=== PATIENT | male | born 1960 | race Caucasian/White ===

== ENCOUNTER 2017-03-20 18:01 | Emergency (ER) | payer BC, SELFPAY ==
[2017-03-20 19:27] VITALS: BP 127/82; PULSE 118; RESP 20; TEMP 37.2; O2SAT 96; BMI 30.4
--- NOTE | 2017-03-20 19:35 | HMH.EDUTC ---
[facility] [place] Clinical Impression: Influenza Disposition: Home, Self-Care Condition on Discharge: Good Instructions: Influenza, DI for Muscle Spasm Additional Instructions: Take medication as prescribed *Ibuprofen hema 6 hours with meal as needed for pain/inflammation *Alternate ibuprofen.and Tylenol as needed if you need for pain and fever *Ice 20 minutes every 2 hours for the first 48 hours after the initial injury followed by moist heat every 20 minutes 3-4 times a day to affected area *Muscle relaxer every 8 hours as needed for muscle spasms but remember, it WILL cause drowsiness You cannot take it and drive, operate machinery or care for small children. *Keep this area active, no movement leads to more stiffness, However take it easy and avoid heavy lifting pushing or pulling ? Start Tamiflu today if you are going to take it. Discussed risk and possible benefits. ? Lots of rest ? Increase Fluids water, Gatorade, powerade, pedialyte,if infant/toddler/child ? Alternate Tylenol and / or ibuprofen as discussed for fever, aches, chills x 24 hours without medication for symptoms ? Follow up IMMEDIATELY for new or worsening Symptoms OR no noticeable improvement over the next 48-72 hours, 911 for difficulty or breathing ? You or your child area contagious until no fever, aches, chills for 24 hours with medication for symptoms Prescriptions: Cyclobenzaprine HCl [Flexeril 10mg tablet] 10 mg PO TID #20 tablet Oseltamivir Phosphate [Tamiflu 75mg Capsule] 75 mg PO BID #10 capsule Promethazine/Dextromethorphan [Promethazine-Dm Syrup] 5 ml PO Q4H #200 syrup Referrals: Khang Gustafson MD [Primary Care Provider] - Time of Disposition: 20:02 Medical Decision Making Vital Signs: 03/20/17 19:27 Temperature 98.9 F Temperature Source Temporal Artery Scan Pulse Rate [Right Radial] 118 H Respiratory Rate 20 Blood Pressure [Right Arm] 127/82 Blood Pressure Mean [Right Arm] 97 Blood Pressure Source [Right Arm] Automatic Cuff Blood Pressure Position [Right Arm] Sitting 02 Sat by Pulse Oximetry 96 Oxygen Delivery Method Room Air - Lucio Inquiry Pt receiving controlled substance: No Lucio was queried for this patient: No [facility] [place] H[place] - General Stated complaint: ear pain/ cough Mode of Arrival: Ambulatory Source of Information: Patient Limitations: No Limitations Description of Symptoms (Recalled from Triage Doc. by RN): COUGH, FEVER, CHEST CONGESTION, KNOT ON LEFT BACK HEENT Symptoms (Recalled from RN notes): No Resp Symptoms (Recalled from RN notes): Yes (COUGH, CHEST CONGESTION) Skin Symptoms (Recalled from RN notes): No MS Symptoms (Recalled from RN notes): No Functional Status (Recalled from RN notes): NA - History of Present Illness Provider Complaint: Patient state he is having ear fullness, cough and body aches since yesterday that has continued to get worse States that he has coughed so much that he is having spasms in his back Severity: mild Severity scale (1-10): 3 Relieving factors: none Exacerbating factors: none Treatments prior to arrival: none - Related Data Previous Rx's Medication Instructions Recorded Cyclobenzaprine HCl [Flexeril 10mg 10 mg PO TID #20 tablet 03/20/17 tablet] Oseltamivir Phosphate [Tamiflu 75 mg PO BID #10 capsule 03/20/17 75mg Capsule] Promethazine/Dextromethorphan 5 ml PO Q4H #200 syrup 03/20/17 [Promethazine-Dm Syrup] Allergies Allergy/AdvReac Type Severity Reaction Status Date / Time No Known Allergies Allergy Unknown Uncoded 03/06/17 14:24 - Worker's Comp Is this a Worker's Comp case?: No Is this an H Worker's Comp?: No Is this a [place] Worker's Comp?: No [facility] History Medical History: Denies:: Cancer, Diabetes Mellitus Type 1, Diabetes Mellitus Type 2, MRSA Amputation: No Fractures: No - *Social History Smoking Status: Never smoker Alcohol Intake: never - Psychiatric History Expresses thoughts of harming self/others: None S
--- NOTE | 2017-03-20 19:41 | ED_ITS ---
[facility] [place] Clinical Impression: Influenza Disposition: Home, Self-Care Condition on Discharge: Good Instructions: Influenza, DI for Muscle Spasm Additional Instructions: Take medication as prescribed *Ibuprofen hema 6 hours with meal as needed for pain/inflammation *Alternate ibuprofen.and Tylenol as needed if you need for pain and fever *Ice 20 minutes every 2 hours for the first 48 hours after the initial injury followed by moist heat every 20 minutes 3-4 times a day to affected area *Muscle relaxer every 8 hours as needed for muscle spasms but remember, it WILL cause drowsiness You cannot take it and drive, operate machinery or care for small children. *Keep this area active, no movement leads to more stiffness, However take it easy and avoid heavy lifting pushing or pulling ? Start Tamiflu today if you are going to take it. Discussed risk and possible benefits. ? Lots of rest ? Increase Fluids water, Gatorade, powerade, pedialyte,if infant/toddler/child ? Alternate Tylenol and / or ibuprofen as discussed for fever, aches, chills x 24 hours without medication for symptoms ? Follow up IMMEDIATELY for new or worsening Symptoms OR no noticeable improvement over the next 48-72 hours, 911 for difficulty or breathing ? You or your child area contagious until no fever, aches, chills for 24 hours with medication for symptoms Prescriptions: Cyclobenzaprine HCl [Flexeril 10mg tablet] 10 mg PO TID #20 tablet Oseltamivir Phosphate [Tamiflu 75mg Capsule] 75 mg PO BID #10 capsule Promethazine/Dextromethorphan [Promethazine-Dm Syrup] 5 ml PO Q4H #200 syrup Referrals: Khang Gustafson MD [Primary Care Provider] - Time of Disposition: 20:02 Medical Decision Making Vital Signs: 03/20/17 19:27 Temperature 98.9 F Temperature Source Temporal Artery Scan Pulse Rate [Right Radial] 118 H Respiratory Rate 20 Blood Pressure [Right Arm] 127/82 Blood Pressure Mean [Right Arm] 97 Blood Pressure Source [Right Arm] Automatic Cuff Blood Pressure Position [Right Arm] Sitting 02 Sat by Pulse Oximetry 96 Oxygen Delivery Method Room Air - Lucio Inquiry Pt receiving controlled substance: No Lucio was queried for this patient: No [facility] [place] - General Stated complaint: ear pain/ cough Mode of Arrival: Ambulatory Source of Information: Patient Limitations: No Limitations Description of Symptoms (Recalled from Triage Doc. by RN): COUGH, FEVER, CHEST CONGESTION, KNOT ON LEFT BACK HEENT Symptoms (Recalled from RN notes): No Resp Symptoms (Recalled from RN notes): Yes (COUGH, CHEST CONGESTION) Skin Symptoms (Recalled from RN notes): No MS Symptoms (Recalled from RN notes): No Functional Status (Recalled from RN notes): NA - History of Present Illness Provider Complaint: Patient state he is having ear fullness, cough and body aches since yesterday that has continued to get worse States that he has coughed so much that he is having spasms in his back Severity: mild Severity scale (1-10): 3 Relieving factors: none Exacerbating factors: none Treatments prior to arrival: none - Related Data Previous Rx's Medication Instructions Recorded Cyclobenzaprine HCl [Flexeril 10mg 10 mg PO TID #20 tablet 03/20/17 tablet] Oseltamivir Phosphate [Tamiflu 75 mg PO BID #10 capsule 03/20/17 75mg Capsule] Promethazine/Dextromethorphan 5 ml PO Q4H #200 syrup 03/20/17 [Promethazine-Dm Syrup]
[2017-03-20 20:07] LABS: UTC Influenza A Antigen Negative (Negative); UTC Influenza B Antigen Positive (Negative)
== END 2017-03-20 20:13 | disposition home or self-care (01) ==
PROVIDERS: Emergency Provider Nurse Practitioner; Family Provider Family Medicine; PCP Family Medicine
DX: J11.1 Influenza due to unidentified influenza virus with other respiratory manifestations (principal)
CPT/HCPCS: 87276; 87804; 99201

== ENCOUNTER → 2017-04-26 17:35 | Outpatient (CLI) | payer BC, SELFPAY ==
--- NOTE | 2017-04-26 18:21 | XR_ITS ---
XR chest 2V HISTORY: ITS.REASON: COUGH ORDERING PHYSICIAN: Khang Gustafson MD PATIENT AGE: 56 years COMPARISON: None available FINDINGS: The cardiomediastinal silhouette and pulmonary vascularity are within normal limits. Patchy density left lung base consistent with atelectasis and/or infiltrate.. No acute bony abnormalities. IMPRESSION: Atelectasis or infiltrate left lung base
== END ==
PROVIDERS: PCP Family Medicine; Visit Provider Family Medicine
DX: R05 Cough (principal)
CPT/HCPCS: 71046

== ENCOUNTER → 2017-05-14 10:13 | Outpatient (CLI) | payer BC, SELFPAY ==
--- NOTE | 2017-05-14 10:22 | XR_ITS ---
XR chest 2V Ordering Physician: Khang Gustafson MD Patient Age: 56 years: Male HISTORY: ITS.REASON: COUGH Since January nonsmoker TECHNIQUE: PA and lateral chest COMPARISON :Previous chest film 04/26/2017 FINDINGS There is been no significant interval change. Heart, and mediastinal structures appear similar. The lungs with fair expansion. Mild accentuation of markings toward the bases may reflect mild atelectasis overlying chest density. Subtle area density projected over the lower T-spine is similar to previous study most likely reflects summation shadow and/or marginal osteophytes. No other associated findings on plain film. No hilar mass chest wall and T-spine studies are otherwise unremarkable to IMPRESSION: ======= Stable chest with nothing definitely acute Minor comments in text
== END ==
PROVIDERS: PCP Family Medicine; Visit Provider Family Medicine
DX: R05 Cough (principal)
CPT/HCPCS: 71046

== ENCOUNTER → 2017-08-03 13:21 | Outpatient (CLI) | payer BC, SELFPAY | PROVIDERS: Family Provider Family Medicine; PCP Family Medicine; Visit Provider Family Medicine | DX: R05 Cough (principal) | CPT/HCPCS: 94010 ==

== ENCOUNTER → 2019-08-08 08:50 | Outpatient (CLI) | payer BC, SELFPAY ==
--- NOTE | 2019-08-08 09:02 | FL_ITS ---
PROCEDURE: FL UPPER GI W AIR CLINICAL INDICATION: ESOPHAGEAL DYPHAGIA,DYSPEPSIA COMPARISON: No exams were available for comparison FINDINGS: The swallowing function and soft motility are normal. Spot films of the cervical esophagus show no abnormal anterior or posterior indentation of the barium column while swallowing. There is a small to moderate size sliding hiatal hernia noted. There is no significant GE reflux demonstrated during the study. An overhead drinking film showed no abnormality of the thoracic esophagus. The stomach is well distended with barium and air in shows no abnormality. The duodenal bulb and duodenal sweep and proximal small bowel appear normal. Fluoroscopic time was 2 minutes 26 seconds. IMPRESSION: Small to moderate size sliding hiatal hernia without GE reflux demonstrated during the study Dictated by: Dr. Alhaji Martines MD 08/08/2019 10:[address] Alhaji Martines MD in [place] 08/08/2019 10:13
== END ==
PROVIDERS: PCP Family Medicine; Visit Provider Family Medicine
DX: R13.10 Dysphagia, unspecified (principal); R10.13 Epigastric pain; Z13.6 Encounter for screening for cardiovascular disorders
CPT/HCPCS: 74246

== ENCOUNTER → 2019-08-26 08:22 | Outpatient (CLI) | payer SELFPAY ==
--- NOTE | 2019-08-26 08:31 | CT_ITS ---
PROCEDURE: CT HEART W CALCIUM SCORE CLINICAL HISTORY: SCREENING COMPARISON: No exams were available for comparison TECHNIQUE: Axial images obtained with sagittal and coronal reformats. All CT scans at the facility use one or more dose reduction, viz: automated exposure control, ma/kV adjustment per patient size (including targeted exams where dose is matched to indication, i.e. head), or iterative reconstruction technique. FINDINGS: Coronary artery calcium score is 230 indicating moderate calcific plaque burden with cardiovascular disease risk. Incidental findings she show mild atelectatic or fibrotic changes in the left lung base. IMPRESSION: Moderate plaque burden with high cardiovascular disease risk Dictated by: Mo Connor MD 08/26/2019 17:29 Electronically signed by Mo Connor MD in [place] 08/26/2019 17:29
== END ==
PROVIDERS: PCP Family Medicine; Visit Provider Family Medicine
DX: Z13.6 Encounter for screening for cardiovascular disorders (principal)
CPT/HCPCS: 75571

== ENCOUNTER → 2019-12-02 08:34 | Outpatient (CLI) | payer BC, SELFPAY ==
--- NOTE | 2019-12-02 | CA_ITS ---
APPROVED REPORT Exam: Exercise Treadmill Technologist: Altagracia Degroot, Ht: 6 ft 1 in Wt: 220 lbs BSA: 2.24 m2 HR: 74 bpm BP: 129/83 mmHg Indications: Atypical Chest Pain, HTN Medical History Medications: Valsartan,,,,, LoraTidine,,,,, RoSUVASTATIN,,,,, SilDENAFIL,,,,, Stress Test Details Test: Juan HR Resting HR: 74 bpm Max Heart Rate (APMHR): 162 bpm Max HR Achieved: 160 bpm Target HR (85% APMHR): 137 bpm % of APMHR: 98 Recovery HR: 100 bpm BP Resting BP: 132/89 mmHg Max BP: 168/86 mmHg Recovery BP: 133.0/83.0 mmHg ECG Clinical Exercise duration: 08:22 min Highest Stage Achieved: Exercise capacity: 10.1 METs Stress ECG Conclusion Resting EKG: Normal Sinus Rhythm, NS ST abn in lead III and aVF Exercised 8:22 on Juan Protocol Max HR: 160, % of PM: 99%, Max BP: 168/86, METs: 10.1, Test Stopped due to: SOA, Fatigue Symptom: No CP Arrhythmias/Ectopy: Occasional PVC ST-T changes: 0.5-1mm of horizontal and downsloping ST depression in leads III and aVF. Exaggeration of baseline abns. Conclusion: Probably normal GXT, GXT only (no images) Test Summary REST . . . . . . . Sitting REST . . . . . . . Standing REST 04:25 0.0 0.0 74 . 132/ 89 . . Stage 1 01:00 10.0 1.7 106 . . . . Stage 1 02:00 10.0 1.7 120 . . . . Stage 1 03:00 10.0 1.7 123 . 166/ 88 . . Stage 2 01:00 12.0 2.5 127 . . . . Stage 2 02:00 12.0 2.5 136 . . . . Stage 2 03:00 12.0 2.5 138 . 168/ 86 . . Stage 3 01:00 14.0 3.4 149 . . . . Stage 3 02:00 14.0 3.4 158 . . . . Stage 3 02:22 14.0 3.4 160 . . . Stop exercise at 08:22 RECOVERY 01:00 0.0 0.0 131 . . . . RECOVERY 02:00 0.0 0.0 115 . 140/ 80 . . RECOVERY 03:00 0.0 0.0 108 . 145/ 75 . . RECOVERY 04:00 0.0 0.0 105 . 134/ 81 . . RECOVERY 05:00 0.0 0.0 101 . 133/ 83 . . RECOVERY 05:19 0.0 0.0 102 . 133/ 83 . . Electronically signed by : Rogers Barlow, 12/03/2019 09:56:23
== END ==
PROVIDERS: PCP Family Medicine; Visit Provider Family Medicine
DX: R07.89 Other chest pain (principal); I10 Essential (primary) hypertension; E78.00 Pure hypercholesterolemia, unspecified; R93.1 Abnormal findings on diagnostic imaging of heart and coronary circulation
CPT/HCPCS: 93017

== ENCOUNTER → 2020-01-27 08:35 | Outpatient (CLI) | payer BC, SELFPAY | PROVIDERS: PCP Family Medicine; Visit Provider Family Medicine | DX: G47.33 Obstructive sleep apnea (adult) (pediatric) (principal); R06.83 Snoring; R53.83 Other fatigue | CPT/HCPCS: G0399 ==

== ENCOUNTER → 2021-01-08 09:07 | Outpatient (CLI) | payer BC, SELFPAY | LOC: COUGHCL 09:08 → COVID.OUT 09:10 | PROVIDERS: PCP Family Medicine; Visit Provider Family Medicine | DX: Z11.52 Encounter for screening for COVID-19 (principal) | CPT/HCPCS: C9803; U0003; U0005 ==

== ENCOUNTER → 2021-04-08 16:33 | Outpatient (CLI) | payer BC, SELFPAY | PROVIDERS: Visit Provider Nurse Practitioner | DX: U07.1 COVID-19 (principal) | CPT/HCPCS: C9803; U0003; U0005 ==

== ENCOUNTER 2022-05-14 21:42 | Emergency (ER) | payer BC, SELFPAY ==
[2022-05-14 21:43] VITALS: BP 144/80; PULSE 99; RESP 16; TEMP 36.7; O2SAT 97; BMI 30.3
[2022-05-14 21:51] VITALS: BMI 32.0
--- NOTE | 2022-05-14 21:52 | CT_ITS ---
PROCEDURE INFORMATION: Exam: CT Abdomen And Pelvis Without Contrast Exam date and time: 05/14/2022 10:09 PM Age: 61 years old Clinical indication: Abdominal pain; Flank; Right; Additional info: Flank pain right side TECHNIQUE: Imaging protocol: Computed tomography of the abdomen and pelvis without contrast. Radiation optimization: All CT scans at this facility use at least one of these dose optimization techniques: automated exposure control; mA and/or kV adjustment per patient size (includes targeted exams where dose is matched to clinical indication); or iterative reconstruction. REPORTING DATA: Count of CT and Cardiac NM exams in prior 12 months: This patient has received 0 known CTs and 0 known cardiac nuclear medicine studies in the 12 months prior to the current study. COMPARISON: CT HEART W CALCIUM SCORE 08/26/2019 9:16 AM FINDINGS: Lungs: Mild atelectasis in the lung bases. Heart: Heart size normal. Mediastinal space: The visualized distal esophagus is largely contracted without gross abnormality. Liver: Moderate fatty infiltration of the liver. Mild fatty sparing around the gallbladder fossa . Normal contour. No mass lesions. No intrahepatic biliary ductal dilatation. Gallbladder and bile ducts: Mildly heterogeneous content in the gallbladder suspicious for small noncalcified stones or sludge. No changes of cholecystitis. Nondilated bile ducts. Pancreas: Normal. No inflammatory changes or ductal dilation. Spleen: Granulomatous calcification in the spleen with no acute splenic abnormality. Adrenal glands: Normal. No adrenal mass. Kidneys and ureters: Mild right hydronephrosis with a proximal right ureteral stone just distal to the UVJ measuring 7 x 5 x 4 mm. Moderate right perinephric stranding. 7 mm nonobstructive right renal stone. 4 mm nonobstructive left renal stone. Stomach and bowel: The stomach is largely contracted. The small bowel is nondilated with no gross abnormality. No acute colonic abnormalities. There are few diverticula present in the distal colon without evidence of acute diverticulitis. Appendix: Prior appendectomy. Intraperitoneal space: No free fluid or air. Vasculature: No acute process. No abdominal aortic aneurysm. Mild calcific atherosclerosis. Lymph nodes: No adenopathy. Urinary bladder: The urinary bladder is largely contracted. Fluid content is complex measuring 25-30 Hounsfield units, suggesting probable hematuria, correlate with UA. Reproductive: Moderately enlarged prostate. Small right hydrocele marginally visualized. Bones/joints: No acute osseous abnormalities. Prior L3-L4 laminectomy and fusion without gross hardware complication. Soft tissues: Unremarkable. IMPRESSION: 1. There is a 7 x 5 x 4 mm proximal right ureteral stone with mild right hydronephrosis. 2. Additional bilateral nonobstructive renal stones are present. 3. Moderate fatty infiltration of the liver. 4. Suspect gallbladder sludge or noncalcified stones with no evidence of cholecystitis or biliary obstruction. 5. Mildly hyperdense content in the urinary bladder suggests probable hematuria in the setting of a passing right renal stone, correlate with UA. 6. Additional nonemergent findings detailed above.
[2022-05-14 22:00] VITALS: BP 144/80; PULSE 91; O2SAT 99
--- NOTE | 2022-05-14 22:06 | PC.NURSE ---
Pt gone to RAD via stretcher
[2022-05-14 22:07] LABS: Basophils # 0.1 K/mm3 (0-0.2); Basophils % 0.7 % (0.1-2.0); Eosinophils # 0.2 K/mm3 (0.0-0.4); Eosinophils % 1.7 % (0.1-12.0); Hematocrit 41.9 % (42.0-52.0); Hemoglobin 14.5 g/dL (14.1-18.0); Lymphocytes # 2.1 K/mm3 (0.7-4.5); Lymphocytes % 20.3 % (10-50); Mean Corpuscular HGB Conc 34.7 g/dL (31.8-35.4); Mean Corpuscular Hemoglobin 32.9 pg (27.0-31.2); Mean Corpuscular Volume 94.9 fl (80-94); Mean Platelet Volume 8.3 fl (7.4-10.4); Monocytes # 0.5 K/mm3 (0.1-1.0); Monocytes % 4.6 % (1.7-9.3); Neutrophils # 7.4 K/mm3 (1.8-7.8); Neutrophils % 72.7 % (37.0-80.0); Platelet Count 280 K/mm3 (142-424); Red Blood Count 4.42 M/mm3 (4.60-6.20); Red Cell Distribution Width 13.3 % (11.5-17.5); White Blood Count 10.1 K/mm3 (4.8-10.8)
[2022-05-14 22:10] LABS: Alanine Aminotransferase 33 U/L (12-78); Albumin Level 4.5 g/dl (3.5-5.0); Albumin/Globulin Ratio 1.5 (1.1-1.8); Alkaline Phosphatase 61 U/L (38-126); Anion Gap 8.1 mEq/L (5-15); Aspartate Amino Transferase 32 U/L (17-59); Bilirubin,Total 0.4 mg/dl (0.2-1.3); Blood Urea Nitrogen 17 mg/dl (9-20); Calcium 9.3 mg/dl (8.4-10.2); Carbon Dioxide 24 mmol/L (22.0-30.0); Chloride 109 mmol/L (98-107); Creatinine Clearance Estimated 74 mL/min (50-200); Estimated Glomerular Filt Rate 44 ml/min (>60); GFR (African American) 54 ML/MIN (>60); Glucose 136 mg/dl (74-100); Potassium 4.1 mmoL/L (3.5-5.1); Sodium 137 mmol/L (136-145); Total Protein,Serum 7.5 g/dl (6.3-8.2)
--- NOTE | 2022-05-14 22:16 | HMH.EDABDPAI ---
Discharge Plan Disposition Patient Disposition: Home, Self-Care Prescriptions Prescriptions: New tamsulosin [Flomax] 0.4 mg capsule 0.4 mg PO DAILY Qty: 10 0RF No Action omeprazole 20 mg capsule,delayed release(DR/EC) 20 mg PO DAILY multivitamin [One Daily Multivitamin] Tablet 1 tab PO DAILY rosuvastatin [Crestor] 20 mg tablet 20 mg PO DAILY valsartan 320 MG tablet 320 mg PO DAILY cyanocobalamin (vitamin B-12) 1,000 mcg tablet 1,000 mcg PO DAILY finasteride 5 mg tablet 5 mg PO DAILY tadalafil 5 mg tablet 5 mg PO DAILY Referrals Follow up/Referrals: Khang Gustafson MD [Primary Care Provider] - See instructions Clinical Impressions Clinical Impression: Renal colic on right side Instructions Patient Instructions: DI for Kidney Stones Discharge ED Provider: Padma (ED),Russ Keyes Abdominal Pain HPI General Chief Complaint: Abdominal Pain Stated Complaint: possible Michela michaud Time Seen by Provider: 05/14/22 22:16 Mode of Arrival: Ambulatory Source of Information: Patient, Spouse and Medical Record Limitations: No Limitations Description of Symptoms (Recalled from ER Triage Doc. by RN): pt to ED wth right flank pain and nausea and vomiting x 2 hours. History of Present Illness HPI narrative: acute onset of rt flank pain w/o fever/trauma or rash complaint: flank pain Consistency: colicky Location: R flank Severity: severe Associated symptoms: nausea and vomiting Related Data Home Medications Medication Instructions Recorded Confirmed rosuvastatin 20 mg tablet (Crestor) 20 mg PO DAILY Cholesterol 01/15/19 05/14/22 valsartan 320 mg tablet 320 mg PO DAILY High blood pressure 01/30/19 05/14/22 multivitamin (One Daily 1 tab PO DAILY Supplement 02/04/20 05/14/22 Multivitamin tablet) omeprazole 20 mg capsule,delayed 20 mg PO DAILY GERD 02/04/20 05/14/22 release cyanocobalamin (vitamin B-12) 1,000 mcg PO DAILY Supplement 05/14/22 05/14/22 1,000 mcg tablet finasteride 5 mg tablet 5 mg PO DAILY bladder 05/14/22 05/14/22 tadalafil 5 mg tablet 5 mg PO DAILY pulmonary 05/14/22 05/14/22 hypertension Previous Rx's Medication Instructions Recorded tamsulosin 0.4 mg capsule (Flomax) 0.4 mg PO DAILY #10 caps 05/14/22 Allergies Allergy/AdvReac Type Severity Reaction Status Date / Time No Known Allergies Allergy Verified 02/04/20 07:44 [facility] Disclaimer: The information contained in this section may have been updated after the patient was seen, as this information can be updated by other users. Social History Smoking Status: Never smoker second hand exposure: No alcohol intake: current substance use type: denies use current occupational status: employed Travel in the last 8 weeks: None household members: spouse housing: house current occupation: [employer] current occupational exposures/hazards: No caffeine: Yes ROS Obtained: Yes All systems reviewed & no additional complaints except as documented Physical Exam General General appearance: alert Head Head exam: normocephalic Eye Eye exam: Present PERRL and EOMI ENT ENT exam: Present mucous membranes moist Neck Neck exam: Present trachea midline Respiratory Respiratory exam: Absent respiratory distress Cardiovascular Cardiovascular exam: Present regular rate Abdominal Exam Abdominal exam: Present soft Extremities Exam Extremities exam: Present full ROM Neurological Exam Neurological exam: Present alert, oriented X3 and CN II-XII intact; Absent motor sensory deficit Skin Skin exam: Absent rash Medical Decision Making Medical Records Medical records reviewed: Yes I reviewed the patient's medical records. Lucio Inquiry Pt receiving controlled substance: No Vital Signs: 05/14/22 21:43 05/14/22 22:00 05/14/22 22:30 Temperature 98.1 F Temperature Source Oral Pulse Rate 91 H 95 H Pulse Rate [Left Radial] 99 H Resp
--- NOTE | 2022-05-14 22:16 | PC.NURSE ---
URINE SENT TO LAB
[2022-05-14 22:18] LABS: Microscopic, Urine URINE MICROSCOPIC (MICROSCOPIC)
--- NOTE | 2022-05-14 22:20 | PC.NURSE ---
Pt back from RAD
--- NOTE | 2022-05-14 22:28 | PC.NURSE ---
Pt pain level is decreased & nausea is much better. He is resting quietly at this time.
[2022-05-14 22:30] VITALS: BP 155/95; PULSE 95; O2SAT 97
[2022-05-14 22:33] LABS: Appearance,Urine CLEAR (Clear); Bilirubin,Urine Negative (Negative); Blood, Urine 3+ (Negative); Color,Urine DK YELLOW (Yellow); Glucose,Urine (UA) Negative (Negative); Ketones,Urine Negative (Negative); Leukocyte Esterase,Urine Negative (Negative); Nitrate,Urine Negative (Negative); PH,Urine 5.5 (5.0-8.5); Protein,Urine TRACE (Negative); Specific Gravity, Urine >= 1.030 (1.005-1.030); Urobilinogen,Urine 0.2 EU/dl (0.2)
--- NOTE | 2022-05-14 22:40 | PC.NURSE ---
Dr. Rouse at speaking with pt/family
--- NOTE | 2022-05-14 22:44 | PC.NURSE ---
Radiology called to prepare a disc of CT scan for his regular Urologist
[2022-05-14 22:45] LABS: Bacteria,Urine Trace /lpf; RBC,Urine 20-50 #/hpf (0-3); Squamous Epithelial Cell,Urine Occasional #/hpf (0-5); WBC,Urine Occasional #/hpf (0-3)
--- NOTE | 2022-05-14 22:52 | PC.NURSE ---
PT given disc
[2022-05-14 23:00] VITALS: BP 155/95; PULSE 95; RESP 18; TEMP 36.6; O2SAT 99
== END 2022-05-14 23:03 | disposition home or self-care (01) ==
PROVIDERS: Emergency Provider Emergency Medicine; PCP Family Medicine
DX: N23 Unspecified renal colic (principal)
CPT/HCPCS: 74176; 80053; 81001; 85025; 96361; 96374; 96375; 99285; J2405

== ENCOUNTER 2022-06-27 06:32 | Day surgery (SDC) | payer BC, SELFPAY ==
[2022-06-23 10:36] VITALS: BMI 30.9
[2022-06-27] VITALS (8 sets, daily range): BP systolic 87–131; BP diastolic 55–71; PULSE 66–98; RESP 10–18; TEMP 36.3–36.4; O2SAT 92–98
--- NOTE | 2022-06-27 07:26 | P.PN_ITS ---
[facility] Disclaimer: The information contained in this section may have been updated after the patient was seen, as this information can be updated by other users. Medical History Hyperlipidemia Hypertension Sleep apnea Surgical History History of appendectomy Family History Other No significant family history Social History Smoking Status: Never smoker second hand exposure: No alcohol intake: current substance use type: denies use current occupational status: employed Travel in the last 8 weeks: None household members: spouse housing: house current occupation: [employer] current occupational exposures/hazards: No caffeine: Yes [facility] Anesthesia Checklist Patient Identification Patient Identification: Arm Band and Verbal (Name & ) Structural Data Admitted From: Home Planned Operative Procedure/s: Colonoscopy Consent for Planned Operative Procedure(s) Verified: Yes NPO Status Verified Time NPO: 00:00 Additional verifications Anesthesia Reactions: No Airway Assessment C-Spine Mobility Assessed: Yes TMJ Mobility Assessed: Yes Dentition: Good Dentition Neurological Assessment Level of Consciousness: Awake Hx Seizures: No Numbness or tingling in extremities: No Anesthesia Plan Anesthesia Risk discussed: Yes Anesthesia Plan: Verified ASA Class: II Anesthesia Type: MAC
--- NOTE | 2022-06-27 07:56 | HMH.SCOPE ---
Procedure: Date: 06/27/22 Patient Date of :: 1960 Procedure Performed:: Colonoscopy Indications:: History of colon polyps Performing Provider:: Geraldo Monteiro MD Referring Provider:: . Sedation:: Monitored anesthesia care Procedure:: After informed consent was obtained the patient was taken to the endoscopy suite. Sedation ensued after the patient was transferred to the left lateral decubitus position. Pulse, blood pressure, and oxygen saturation were monitored throughout the procedure. Digital rectal exam revealed no significant abnormality. The colonoscope was placed in position. The entire colon was evaluated. The colonoscope was carefully removed and the patient was transferred to recovery in stable condition. Please see findings and specimens below for detail. Findings:: Bowel preparation moderate to poor (somewhat improved with large volume irrigation/suctioning) Fairly significant lack of relaxation/spasticity Hemorrhoidal cushions Slightly enlarged prostate with no definitive mass lesion Mild scattered AVMs with no sign of recent hemorrhage Specimens:: None Recommendations:: Repeat colonoscopy around 3 years with alternate/extended bowel preparation Complications:: No immediate with the exception of limited bowel preparation (improved with irrigation/suction) Estimated blood obtained (mL): 0
== END 2022-06-27 08:55 | disposition home or self-care (01) ==
PROVIDERS: PCP Family Medicine; Visit Provider Surgery
PROC: 0DJD8ZZ Inspection of Lower Intestinal Tract, Via Natural or Artificial Opening Endoscopic (ICD-10-PCS; CPT 45378; principal; 2022-06-27 07:30)
DX: Z12.11 Encounter for screening for malignant neoplasm of colon (principal); Z86.010 Personal history of colon polyps; Z79.899 Other long term (current) drug therapy
CPT/HCPCS: 45378; J2704

== ENCOUNTER 2022-09-07 20:04 | Emergency (ER) | payer OTHER, BC, SELFPAY ==
[2022-09-07 20:17] VITALS: BP 143/91; PULSE 108; RESP 18; TEMP 36.6; O2SAT 97; BMI 30.3
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
--- NOTE | 2022-09-07 20:46 | PC.NURSE ---
in to see patient.
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
--- NOTE | 2022-09-07 21:35 | PC.NURSE ---
Rounded on patient. Pt advised pain remains the same. No new issues and no other needs at this time.
--- NOTE | 2022-09-07 22:58 | PC.NURSE ---
Rounded on patient at this time. Provided drink and c-colar was removed with VO from . No new needs at this time
[2022-09-08 00:38] VITALS: BP 130/70; PULSE 74; RESP 16; TEMP 36.8; O2SAT 98
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
[2022-09-08 03:10] VITALS: BMI 30.3
== END 2022-09-08 00:41 | disposition home or self-care (01) ==
PROVIDERS: Emergency Provider Emergency Medicine; PCP Family Medicine
DX: S22.32XA Fracture of one rib, left side, initial encounter for closed fracture (principal); R91.8 Other nonspecific abnormal finding of lung field; R59.0 Localized enlarged lymph nodes; N20.0 Calculus of kidney; I10 Essential (primary) hypertension; E78.5 Hyperlipidemia, unspecified; G47.30 Sleep apnea, unspecified; V43.52XA Car driver injured in collision with other type car in traffic accident, initial encounter
CPT/HCPCS: 70450; 71045; 71250; 72125; 72128; 72131; 73030; 74176; 99284; 99285

== ENCOUNTER → 2022-10-23 14:23 | Outpatient (CLI) | payer BC, SELFPAY ==
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
== END ==
PROVIDERS: PCP Family Medicine; Visit Provider Internal Medicine Pulmonary Disease
DX: R06.09 Other forms of dyspnea (principal); R60.0 Localized edema; M79.604 Pain in right leg; M79.605 Pain in left leg; I10 Essential (primary) hypertension; E78.5 Hyperlipidemia, unspecified
CPT/HCPCS: 93970

== ENCOUNTER 2022-11-13 10:26 | Day surgery (SDC) | payer BC, SELFPAY ==
[2022-11-10 14:01] VITALS: BMI 30.9
[2022-11-13] VITALS (10 sets, daily range): BP systolic 108–145; BP diastolic 60–86; PULSE 77–99; RESP 12–18; TEMP 36.4–43; O2SAT 95–99
[2022-11-13 11:18] LABS: Basophils # 0.1 K/mm3 (0-0.2); Basophils % 0.8 % (0.1-2.0); Eosinophils # 0.2 K/mm3 (0.0-0.4); Eosinophils % 2.6 % (0.1-12.0); Hematocrit 48.4 % (42.0-52.0); Hemoglobin 15.6 g/dL (14.1-18.0); Lymphocytes # 1.4 K/mm3 (0.7-4.5); Lymphocytes % 25.2 % (10-50); Mean Corpuscular HGB Conc 32.3 g/dL (31.8-35.4); Mean Corpuscular Hemoglobin 31.6 pg (27.0-31.2); Monocytes # 0.4 K/mm3 (0.1-1.0); Monocytes % 6.5 % (1.7-9.3); Neutrophils # 3.7 K/mm3 (1.8-7.8); Neutrophils % 64.8 % (37.0-80.0); Platelet Count 257 K/mm3 (142-424); Red Blood Count 4.94 M/mm3 (4.60-6.20); White Blood Count 5.7 K/mm3 (4.8-10.8)
[2022-11-13 11:21] LABS: Anion Gap 14.3 mEq/L (5-15); Blood Urea Nitrogen 14 mg/dl (9-20); Calcium 9.4 mg/dl (8.4-10.2); Carbon Dioxide 28 mmol/L (22.0-30.0); Chloride 103 mmol/L (98-107); Creatinine Clearance Estimated 97 mL/min (50-200); Estimated Glomerular Filt Rate 62 ml/min (>60); GFR (African American) 74 ML/MIN (>60); Glucose 96 mg/dl (74-100); Potassium 4.3 mmoL/L (3.5-5.1); Sodium 141 mmol/L (136-145)
--- NOTE | 2022-11-13 11:23 | P.PNANES_ITS ---
[facility] Disclaimer: The information contained in this section may have been updated after the patient was seen, as this information can be updated by other users. Medical History GERD (gastroesophageal reflux disease) Hilar lymphadenopathy Hyperlipidemia Hypertension Sleep apnea Surgical History History of appendectomy History of hernia surgery History of lumbar surgery Family History Other Cancer Diabetes Hypertension Social History Smoking Status: Never smoker second hand exposure: No alcohol intake: never substance use type: denies use current occupational status: employed Travel in the last 8 weeks: Inside the [place] household members: spouse housing: house current occupation: service [employer] current occupational exposures/hazards: No caffeine: Yes [facility] Anesthesia Checklist Patient Identification Patient Identification: Arm Band Structural Data Admitted From: Home Planned Operative Procedure/s: Bronchoscopy, EBUS Consent for Planned Operative Procedure(s) Verified: Yes Verified Documents: Surgical Consent and History and Physical NPO Status Verified Time NPO: 00:00 Additional verifications Anesthesia Reactions: Yes (drowsiness) Hx Blood Transfusions: No Blood Transfusion Reaction: No Airway Assessment Mallampati Score:: Class II C-Spine Mobility Assessed: Yes TMJ Mobility Assessed: Yes Dentition: Good Dentition Neurological Assessment Level of Consciousness: Awake and Alert Anesthesia Plan Anesthesia Risk discussed: Yes Anesthesia Plan: Verified ASA Class: II Anesthesia Type: General
--- NOTE | 2022-11-13 14:52 | EXP.BRONCH.N ---
Procedure: Date: 11/13/22 Patient Date of :: 1960 Procedure Performed:: Bronchoscopy airway examination, bronchoalveolar lavage, endobronchial ultrasound-guided fine-needle aspirate Indications:: Lung nodules and lymphadenopathy Performing Provider:: Laura Mccormick MD Referring Provider:: Dr: Khang Gustafson MD Sedation:: General anesthesia Procedure:: Bronchoscopy airway examination, bronchoalveolar lavage, endobronchial ultrasound-guided fine-needle aspirate: A clean EBUS bronchoscopy was advanced through the ET tube and lymph node surveillance was performed. Patient noted to have lymphadenopathy at station 4R, 4L, 7, 10R and 10 L. A total of 5 passes were performed at each lymph node station and the specimens were sent seperately in [employer] for cytopathologic examination. Additional passes performed at each of the above mentioned lymphnode stations and the specimen was collected in [place] medium for flow cytometry examination and two seperate culture mediums specimen containers for bacterial fungal AFB stain and cultures. EBUS bronchoscopy was retracted and clean therapeutic bronchoscopy was advanced through the ET tube and airway examination performed. Airways appeared grossly normal, no evidence of mucoid secretions, mucous plugging active bleeding/old blood clots noted. Bronchoalveolar lavage was performed in the RIGHT MIDDLE LOBE with instillation of 60 cc normal saline with return of 30 cc back. BAL fluid was sent for cell count and differential along with bacterial fungal and AFB stain and cultures. Patient tolerated the procedure with no immediate acute complications. We will follow the patient in pulmonary clinic in 7 to 10 days. Findings:: Please see the procedure note Recommendations:: Post operative bronchoscopy instructions Follow the patient in pulmonary clinic in 5 days with results Complications:: No acute immediate complications Estimated blood obtained (mL): 5
--- NOTE | 2022-11-13 15:00 | XR_ITS ---
FINAL REPORT CLINICAL HISTORY: bronchoscopy COMPARISON: 09/07/2022 FINDINGS: The heart size is normal. The mediastinum is normal. There are mild chronic changes at the lung bases. There is no focal infiltrate or edema. There are no pleural effusions. There is no pneumothorax. There is no osseous abnormality. IMPRESSION: No acute cardiopulmonary process. No pneumothorax post bronchoscopy. Reviewed, Interpreted and Dictated by Peterson Vincent MD Transcribed by Fatmata Yancey Authenticated and . [facility]
--- NOTE | 2022-11-13 15:03 | P.PNANES_ITS ---
[facility] Anesthesia Record Part I Anesthesia Record I Intake, IV Amount: 1,400 Hydration: Adequate Estimated blood loss (mL): 0 Urine output (mL): 0 Blood Products used (#): none Blood Pressure: 108/72 SaO2: 99 Pulse Rate: 99 Airway Patency: Patent Respiratory Rate: 12 Temperature: 97.5 F Patient is:: Awake and Stable Stable to PACU at:: 15:00
--- NOTE | 2022-11-14 10:01 | EXP.ANES.II ---
[facility] Anesthesia Record Part II Anesthesia Record Part II Discharge Time: 15:30 Destination: Surgical Day Care (OP Surgery) PACU nurse assessment reviewed?: Yes Patient Condition:: Good Anesthesia Complications:: None Swallowing reflex intact?: Yes Airway Patency: Patent Cyanosis?: No Blood Pressure: 123/79 SaO2: 97 Respiratory Rate: 17 Pulse Rate: 78 Temperature: 97.5 F Mental Status: Alert & Oriented Pain level:: 0 Nausea and/or vomitting:: None Intake, IV Amount: 0 Hydration: Adequate
[2022-11-14 10:02] VITALS: BP 123/79; PULSE 78; RESP 17; TEMP 36.4; O2SAT 97
== END 2022-11-13 16:15 | disposition home or self-care (01) ==
PROVIDERS: PCP Family Medicine; Visit Provider Internal Medicine Pulmonary Disease
PROC: (CPT 31624; principal; 2022-11-13 12:15)
DX: R93.89 Abnormal findings on diagnostic imaging of other specified body structures (principal); R59.0 Localized enlarged lymph nodes; R91.8 Other nonspecific abnormal finding of lung field; Z79.899 Other long term (current) drug therapy
CPT/HCPCS: 31624; 31654; 71045; 80048; 85025; 87070; 87077; 87102; 87116; 87186; 87205; 87206; 89051; J2405

== ENCOUNTER → 2022-11-17 09:11 | Outpatient (CLI) | payer BC, SELFPAY ==
[2022-11-17 09:40] LABS: Basophils # 0.1 K/mm3 (0-0.2); Basophils % 1.1 % (0.1-2.0); Eosinophils # 0.2 K/mm3 (0.0-0.4); Eosinophils % 4.2 % (0.1-12.0); Hematocrit 45.2 % (42.0-52.0); Lymphocytes # 1.2 K/mm3 (0.7-4.5); Lymphocytes % 22.7 % (10-50); Mean Corpuscular HGB Conc 33.3 g/dL (31.8-35.4); Mean Corpuscular Hemoglobin 32.3 pg (27.0-31.2); Mean Corpuscular Volume 97.1 fl (80-94); Mean Platelet Volume 8.1 fl (7.4-10.4); Monocytes # 0.5 K/mm3 (0.1-1.0); Neutrophils # 3.3 K/mm3 (1.8-7.8); Platelet Count 270 K/mm3 (142-424); Red Blood Count 4.66 M/mm3 (4.60-6.20); White Blood Count 5.3 K/mm3 (4.8-10.8)
[2022-11-20 15:59] LABS: Histoplasma Gal'mannan Ag Ur <0.5 (<0.5 ng/mL)
[2022-11-21 21:34] LABS: Angiotensin Converting Enzyme 80 U/L (14-82); QuantiFERON-TB Gold Plus Negative (Negative)
[2022-11-22 22:20] LABS: Fungitell(Beta D-Glucan) Serum <31 pg/mL (<80)
[2022-11-29 00:04] LABS: Aspergillus flavus Negative (Neg:<1:1); Aspergillus fumigatus Negative (Neg:<1:1); Aspergillus niger Negative (Neg:<1:1); Blastomyces Antibody Negative (Neg:<1:1)
== END ==
PROVIDERS: PCP Family Medicine; Visit Provider Internal Medicine Pulmonary Disease
DX: J84.10 Pulmonary fibrosis, unspecified (principal); R59.0 Localized enlarged lymph nodes; R91.8 Other nonspecific abnormal finding of lung field; R06.09 Other forms of dyspnea; B44.9 Aspergillosis, unspecified; J45.909 Unspecified asthma, uncomplicated
CPT/HCPCS: 36415; 82164; 85025; 86480; 86606; 86612; 87385; 87449

== ENCOUNTER → 2023-02-22 07:58 | Outpatient (CLI) | payer BC, SELFPAY ==
--- NOTE | 2023-02-22 07:59 | CA_ITS ---
APPROVED REPORT EXAM: Comprehensive 2D, Doppler, and color-flow Echocardiogram Leather Worker: PHUONG Ellington, RVS Ht: 6 ft 1 in Wt: 238lbs BSA: 2.32 BP: 102/78 mmHg Indications: Pulmonary nodule, SOA, HTN 2D Dimensions Left Atrium 3.75 cm LA Volume 45.50 mL LA Volume Index 19.20 mL/m2 (M/F) 16-34 EF AP4 56.50 % GL Strain -21.6 % M-Mode Dimensions RVDd 3.27 cm (0.9-2.6) LA Diam 3.77 cm (1.9-4.0) LVDd 5.86 cm (3.5-5.7) LVDs 4.29 cm (3.5-5.7) IVSd 1.36 cm (0.6-1.1) PWd 1.27 cm (0.6-1.1) EF (Teich) 51.60% EPSs 1.07 cm FS 26.80% EDV (Teich) 170.50 mL ESV (Teich) 82.60 mL LV Diastology E Decel Time 217 (160-240 msec) E/A Ratio 0.81 MED A' 9.70 cm/s LAT A' 9.10 cm/s Aortic Valve RHODA Index 1.76 cm2/m2 AoV Peak Mat. 102.0 (50-130 cm/s) AO Peak GR. 4.10 mmHg AO Mean GR. 2.10 (<5 mmHg) AO VTI 19.2 (18-25 cm) RHODA (VTI) 4.18 (2.5-4.5 cm2) Mitral Valve MV A Velocity 88.0 (40-130 cm/s) E/A Ratio 0.81 MV Mean Gr. 1.50 (<2mmHg) Pulmonary Valve DC End VMAX 189.0 cm/s Tricuspid Valve TR P. Velocity 221.00 cm/s RAP Estimate 10.00 mmHg RVSP 29.60 mmHg Left Ventricle The left ventricle is normal size. The left ventricular systolic function is normal. The left ventricular ejection fraction is within the normal range. There is normal left ventricular wall thickness. There is normal LV segmental wall motion. The left ventricular diastolic function is normal. LVEF is 55%. Right Ventricle The right ventricle is mildly dilated. The right ventricular systolic function is normal. Atria The left atrium size is normal. The right atrium size is normal. There is no Doppler evidence of interatrial shunt. Aortic Valve The aortic valve is normal in structure. There is no aortic valvular stenosis. No aortic regurgitation. Mitral Valve The mitral valve is normal in structure. No evidence of mitral valve stenosis. Mild mitral regurgitation. Tricuspid Valve The tricuspid valve leaflets are thin and pliable. Trace tricuspid regurgitation. RVSP is 20-25 mmHg. Pulmonic Valve The pulmonary valve is normal in structure. Trace pulmonic regurgitation. Great Vessels The aortic root is normal in size. The ascending aorta is normal in size. IVC is normal in size and collapses >50% with inspiration. Pericardium There is no pericardial effusion. Other Information Study Quality: Fair Conclusion Normal biventricular systolic function. Mild RV dilation. Mild MR. Electronically signed by : Rosenda Parkinson MD 02/25/2023 20:26:58
[2023-02-22 08:45] VITALS: PULSE 66; PULSE 74
--- NOTE | 2023-02-22 09:56 | CT_ITS ---
FINAL REPORT TECHNIQUE: Axial images were obtained from the lung apex to the mid abdomen by computed tomography. Coronal reformatted images were obtained. This study was performed with techniques to keep radiation doses as low as reasonably achievable, (ALARA). Individualized dose reduction techniques using automated exposure control or adjustment of mA and/or kV according to the patient''s size were employed. CLINICAL HISTORY: follow-up on nodule COMPARISON: 09/07/2022 FINDINGS: There is no axillary adenopathy. There is no hilar or mediastinal adenopathy. Heart size is normal. There is no pericardial or pleural effusion. Nodule near the anterior aspect of the minor fissure measures 6 mm, was 12 mm, best seen on image 47. Small nodule at the right major fissure is stable and likely represents intrafissural lymph node. Small nodule at the left major fissure also likely represents intrafissural lymph node. No new mass or nodule identified. There is mild atelectasis or scarring in the lung bases. Limited images of the upper abdomen demonstrate mild fatty infiltration of the liver. IMPRESSION: Improved nodule at the minor fissure. No new mass or nodule. Reviewed, Interpreted and Dictated by Jose E Givens III, MD Transcribed by Fatmata Yancey Authenticated and [facility]
== END ==
LOC: RT 07:59
PROVIDERS: PCP Family Medicine; Visit Provider Internal Medicine Pulmonary Disease
DX: R06.02 Shortness of breath (principal); R06.09 Other forms of dyspnea; R91.8 Other nonspecific abnormal finding of lung field; D86.1 Sarcoidosis of lymph nodes
CPT/HCPCS: 71250; 93225; 93306; 94060; 94618; 94640; 94726; 94729

== ENCOUNTER 2023-05-27 13:26 | Emergency (ER) | payer BC, SELFPAY ==
[2023-05-27 14:05] VITALS: BP 130/71; PULSE 100; RESP 18; TEMP 36.8; O2SAT 95; BMI 18.7
--- NOTE | 2023-05-27 14:22 | EXP.UTC ---
Discharge Plan Disposition Patient Disposition: Home, Self-Care Condition: Good Prescriptions Prescriptions: New azithromycin [Zithromax] 250 mg tablet 250 mg PO UD DOSE PK Qty: 6 0RF Rx Instructions: Take two (2) tablets today, then one (1) tablet days #2 thru #5 benzonatate 100 mg capsule 100 mg PO TIDP PRN (Reason: Cough) Qty: 30 0RF methylprednisolone 4 mg Tablets,Dose Pack 4 mg PO DIRECTED 6 Days Qty: 21 0RF Rx Instructions: Take 1 pack as directed for 6 days No Action multivitamin [One Daily Multivitamin] Tablet 1 tab PO DAILY omeprazole 20 mg capsule,delayed release(DR/EC) 20 mg PO .PRN rosuvastatin [Crestor] 20 mg tablet 20 mg PO DAILY valsartan 320 MG tablet 320 mg PO DAILY Excedrin Migraine 250-250-65 mg Tablet 1 tab PO Q6H finasteride 5 mg tablet 5 mg PO DAILY tadalafil 5 mg tablet 5 mg PO DAILY Referrals Follow up/Referrals: Khang Gustafson MD [Primary Care Provider] - See instructions Activity Restrictions/Add. Instructions Additional Instructions/Restrictions: Drink plenty of fluids. Take tylenol or ibuprofen for pain or fever. Take the medications as directed. Follow up with your regular doctor. GO TO THE ER FOR ANY WORSENING SYMPTOMS Clinical Impressions Clinical Impression: Sinusitis, Acute viral syndrome Instructions Patient Instructions: Sinusitis, DI for Sinusitis Discharge ED Provider: Marcos [place] [facility] [place] General Stated complaint: cough, headache Time Seen by Provider: 05/27/23 14:21 History of Present Illness Provider Complaint: He states that for the past 2 days he has had sinus congestion, chest congestion, productive cough, and malaise. He has not had fever, but he has had chills and body aches. Related Data Home Medications Medication Instructions Recorded Confirmed rosuvastatin 20 mg tablet (Crestor) 20 mg PO DAILY Cholesterol 01/15/19 05/27/23 valsartan 320 mg tablet 320 mg PO DAILY High blood pressure 01/30/19 05/27/23 multivitamin (One Daily 1 tab PO DAILY Supplement 02/04/20 05/27/23 Multivitamin tablet) finasteride 5 mg tablet 5 mg PO DAILY bladder 05/14/22 05/27/23 tadalafil 5 mg tablet 5 mg PO DAILY pulmonary 05/14/22 05/27/23 hypertension [id number] 250 1 tab PO Q6H Headache 06/27/22 05/27/23 mg-250 mg-65 mg tablet (Excedrin Migraine) omeprazole 20 mg capsule,delayed 20 mg PO .PRN GERD 11/23/22 05/27/23 release Previous Rx's Medication Instructions Recorded azithromycin 250 mg tablet 250 mg PO UD DOSE PK #6 tabs 05/27/23 (Zithromax) benzonatate 100 mg capsule 100 mg PO TIDP PRN Cough #30 caps 05/27/23 methylprednisolone 4 mg tablets in 4 mg PO DIRECTED 6 days #21 tabs 05/27/23 a dose pack Allergies Allergy/AdvReac Type Severity Reaction Status Date / Time lisinopril Allergy Cough Verified 05/27/23 14:25 [facility] Disclaimer: The information contained in this section may have been updated after the patient was seen, as this information can be updated by other users. Medical History (Updated 05/27/23 @ 14:56 by Marcos Flaherty APRN) Lymph node sarcoidosis GERD (gastroesophageal reflux disease) Hilar lymphadenopathy Sleep apnea Hyperlipidemia Hypertension Surgical History History of hernia surgery History of lumbar surgery History of appendectomy Family History Other Cancer Diabetes Hypertension Social History Smoking Status: Never smoker second hand exposure: No alcohol intake: never substance use type: denies use current occupational status: employed Travel in the last 8 weeks: Inside the [place] household members: spouse housing: house current occupation: [employer] current occupational exposures/hazards: No caffeine: Yes ROS Obtained: Yes All systems reviewed & no additional complaints except as documented Constitutional Constitutional: Reports poor appetite Eyes Eyes: Reports system reviewed and no additional complaints, except as documented ENT Ears, Nose, Mouth, and Throat: Reports as per HPI Cardiovascular Cardiovascular: Reports system reviewed and no additional complaints, except as documented and Denies chest pain Respiratory Respiratory: Denies shortness of breath, Reports chest congestion, Reports cough, Denies stridor and Denies wheezing Gastrointestinal Gastrointestingal: Reports system reviewed and no additional complaints, except as documented; Denies abdominal pain, diarrhea or vomiting Musculoskeletal Musculoskeletal: Reports system reviewed and no additional complaints, except as documented and Denies arthralgias Integumentary/Breasts Skin/Breast: Reports system reviewed and no additional complaints, except as documented and Denies rash Neurologic Neurologic: Denies paresthesias Allergic/Immunologic Allergic/Immunologic: Denies wheezing Physical Exam General General appearance: alert and in no apparent distress Eye Eye exam: Present normal appearance, PERRL and EOMI ENT ENT exam: Present mucous membranes moist and normal external ear exam Expanded ENT Exam External ear exam: Present normal external inspection TM/Canal exam: Bilateral TM: erythema and bulging Nose exam: Absent sinus tenderness Nasal speculum exam: Bilateral: normal Mouth exam: Present normal external inspection; Absent drooling Teeth exam: Present normal inspection Throat exam: Present tonsillar erythema and tonsillomegaly Neck Neck exam: Present normal inspection, full ROM and trachea midline; Absent tenderness, lymphadenopathy or thyromegaly Chest Chest inspection: Present normal inspection and symmetric chest wall rise; Absent tenderness or rash Respiratory Respiratory exam: Present normal lung sounds bilaterally; Absent respiratory distress, wheezes, stridor or accessory muscle use Cardiovascular Cardiovascular exam: Present regular rate, normal rhythm and normal heart sounds Abdominal Exam Abdominal exam: Present soft; Absent distention, tenderness, guarding, rebound or rigidity Extremities Exam Extremities exam: Present normal inspection, full ROM and normal capillary refill; Absent tenderness or calf tenderness Back Exam Back exam: Present normal inspection and full ROM; Absent tenderness Neurological Exam Neurological exam: Present alert and oriented X3 Psychiatric Psychiatric exam: Present normal affect and normal mood Skin Skin exam: Present warm, dry, intact and normal color Lymphatic Lymphatic Findings: no adenopathy Medical Decision Making Lucio Inquiry Pt receiving controlled substance: No
[2023-05-27 14:39] LABS: UTC Strep Screen (Rapid) Negative (Negative)
[2023-05-27 14:40] LABS: UTC Influenza A Antigen Negative (Negative); UTC Influenza B Antigen Negative (Negative)
[2023-05-27 15:07] VITALS: BP 130/71; PULSE 100; RESP 18; TEMP 36.8; O2SAT 95
--- NOTE | 2023-05-27 15:07 | PC.NURSE ---
Sent up rapid flu/covid to lab.
[2023-05-27 15:42] LABS: Influenza A, PCR Not Detected (NotDetected); Influenza B, PCR Not Detected (NotDetected)
[2023-05-27 16:21] LABS: Coronavirus 19, PCR Detected (NotDetected)
== END 2023-05-27 15:07 | disposition home or self-care (01) ==
PROVIDERS: Emergency Provider Nurse Practitioner Family; PCP Family Medicine
DX: J01.90 Acute sinusitis, unspecified (principal); B34.9 Viral infection, unspecified; R51.9 Headache, unspecified; R05.9 Cough, unspecified; R09.81 Nasal congestion; R53.81 Other malaise; R68.83 Chills (without fever); I10 Essential (primary) hypertension; E78.5 Hyperlipidemia, unspecified; K21.9 Gastro-esophageal reflux disease without esophagitis; G47.30 Sleep apnea, unspecified; D86.1 Sarcoidosis of lymph nodes
CPT/HCPCS: 87636; 87804; 87880; 99204; 99212; G0463

== ENCOUNTER 2024-04-22 07:53 | Outpatient (CLI) | payer OTHER, SELFPAY ==
--- NOTE | 2024-04-22 08:08 | XR_ITS ---
FINAL REPORT TECHNIQUE: Chest PA & Lateral CLINICAL HISTORY: HIGH BLOOD PRESSURE COMPARISON: 11/13/2022 FINDINGS: 2 views of the chest were performed. The heart size is normal. The mediastinum is within normal limits. There is no acute cardiopulmonary process. There are no pleural effusions. There is no pneumothorax. The bony thorax appears intact. IMPRESSION: No acute cardiopulmonary process. Reviewed, Interpreted and Dictated by Peterson Vincent MD Transcribed by Roshni Hummel Authenticated and [facility]
--- NOTE | 2024-04-22 08:40 | ECG_ITS ---
APPROVED REPORT Exam: Resting ECG HR:90 bpm ECG Measurements Heart Rate 90 AXES MN 154 P 44 QRSd 99 QRS 58 QT 351 T 14 QTc 399 Conclusion SINUS RHYTHM NONSPECIFIC T-WAVE ABNORMALITY BORDERLINE ECG UNCONFIRMED REPORT Electronically signed by : S[place] MD 04/22/2024 20:08:23
[2024-04-22 08:47] LABS: Basophils # 0.1 K/mm3 (0-0.2); Basophils % 0.8 % (0.1-2.0); Eosinophils # 0.1 K/mm3 (0.0-0.4); Eosinophils % 2.4 % (0.1-12.0); Hematocrit 43.4 % (42.0-52.0); Hemoglobin 14.9 g/dL (14.1-18.0); Lymphocytes # 1.4 K/mm3 (0.7-4.5); Lymphocytes % 23.6 % (10-50); Mean Corpuscular HGB Conc 34.3 g/dL (31.8-35.4); Mean Corpuscular Hemoglobin 32.1 pg (27.0-31.2); Mean Corpuscular Volume 93.5 fl (80-94); Mean Platelet Volume 10.1 fl (7.4-10.4); Monocytes # 0.4 K/mm3 (0.1-1.0); Monocytes % 7.1 % (1.7-9.3); Neutrophils # 3.9 K/mm3 (1.8-7.8); Neutrophils % 65.9 % (37.0-80.0); Platelet Count 229 K/mm3 (142-424); Red Blood Count 4.64 M/mm3 (4.60-6.20); White Blood Count 5.9 K/mm3 (4.8-10.8)
[2024-04-22 09:03] LABS: Hemoglobin A1C 5.3 % (4.0-6.0)
[2024-04-22 09:17] LABS: Chloride 105 mmol/L (98-107); Potassium 4.4 mmoL/L (3.5-5.1); Sodium 140 mmol/L (136-145)
[2024-04-22 09:20] LABS: Anion Gap 17.4 mEq/L (5-15); Blood Urea Nitrogen 17 mg/dl (9-20); Carbon Dioxide 22 mmol/L (22.0-30.0); Estimated Glomerular Filt Rate 68 ml/min (>60); GFR (African American) 82 ML/MIN (>60)
[2024-04-22 09:21] LABS: Calcium 9.6 mg/dl (8.4-10.2); Glucose 119 mg/dl (74-100)
== END 2024-04-22 23:59 | disposition home or self-care (01) ==
PROVIDERS: PCP Family Medicine; Visit Provider Orthopaedic Surgery
DX: Z01.818 Encounter for other preprocedural examination (principal); R73.09 Other abnormal glucose; Z87.898 Personal history of other specified conditions
CPT/HCPCS: 36415; 71046; 80048; 83036; 85025; 93005

== ENCOUNTER 2024-04-27 15:41 | Emergency (ER) | payer BC, SELFPAY ==
--- NOTE | 2024-04-27 16:50 | XR_ITS ---
PROCEDURE INFORMATION: Exam: XR Chest Exam date and time: 04/27/2024 4:48 PM Age: 63 years old Clinical indication: Wheezing TECHNIQUE: Imaging protocol: Radiologic exam of the chest. Views: 2 views. COMPARISON: CR XR CHEST 2V 04/22/2024 8:16 AM FINDINGS: Lungs: Peribronchial consolidation in the right lower lobe. No other airspace consolidation or nodules. Pleural spaces: No pleural effusion. No pneumothorax. Heart/Mediastinum: No abnormalities. No cardiomegaly. No pulmonary vascular congestion. Bones/joints: No fractures or bone lesions. IMPRESSION: Reactive airways disease or pneumonia in the right lower lobe.
[2024-04-27 17:10] VITALS: BP 113/73; PULSE 108; RESP 18; TEMP 37.1; O2SAT 100; BMI 31.2
--- NOTE | 2024-04-27 17:12 | EXP.UTC ---
Discharge Plan Disposition Patient Disposition: Home, Self-Care Condition: Good Prescriptions Prescriptions: New benzonatate 100 mg capsule 100 mg PO TIDP PRN (Reason: Cough) Qty: 30 0RF methylprednisolone 4 mg Tablets,Dose Pack 4 mg PO DIRECTED 6 Days Qty: 21 0RF Rx Instructions: Take 1 pack as directed for 6 days azithromycin [Zithromax] 250 mg tablet 250 mg PO UD DOSE PK Qty: 6 0RF Rx Instructions: Take two (2) tablets today, then one (1) tablet days #2 thru #5 No Action valsartan 320 MG tablet 320 mg PO DAILY azithromycin [Zithromax] 250 mg tablet 250 mg PO UD DOSE PK Qty: 6 0RF Rx Instructions: Take two (2) tablets today, then one (1) tablet days #2 thru #5 Excedrin Migraine 250-250-65 mg Tablet 1 tab PO Q6H finasteride 5 mg tablet 5 mg PO DAILY Referrals Follow up/Referrals: Khang Gustafson MD [Primary Care Provider] - See instructions Activity Restrictions/Add. Instructions Additional Instructions/Restrictions: Drink plenty of fluids. Take tylenol or ibuprofen for pain or fever. Take the medications as directed. Follow up with your regular doctor. GO TO THE ER FOR ANY WORSENING SYMPTOMS Clinical Impressions Clinical Impression: Acute bronchitis, Acute viral syndrome Instructions Patient Instructions: DI for Acute Bronchitis, DI for Viral Syndrome, Methylprednisolone, Azithromycin Print Language Print Language: Greek Discharge ED Provider: Marcos Flaherty [facility] [place] HPI General Stated complaint: cough Mode of Arrival: Ambulatory Source of Information: Patient Time Seen by Provider: 04/27/24 17:11 Description of Symptoms (Recalled from Triage Doc. by RN): BACK AND RIB PAIN FROM COUGHING, WHEEZING HEENT Symptoms (Recalled from RN notes): No Resp Symptoms (Recalled from RN notes): Yes Skin Symptoms (Recalled from RN notes): No MS Symptoms (Recalled from RN notes): Yes Functional Status (Recalled from RN notes): WNL Related Data Home Medications ?Medication ?Instructions ?Recorded ?Confirmed valsartan 320 mg tablet 320 mg PO DAILY High blood pressure 01/30/19 04/27/24 finasteride 5 mg tablet 5 mg PO DAILY bladder 05/14/22 04/27/24 [id number]-[id number] 250 1 tab PO Q6H Headache 06/27/22 05/27/23 mg-250 mg-65 mg tablet (Excedrin Migraine) Previous Rx's ?Medication ?Instructions ?Recorded azithromycin 250 mg tablet 250 mg PO UD DOSE PK #6 tabs 05/27/23 (Zithromax) azithromycin 250 mg tablet 250 mg PO UD DOSE PK #6 tabs 04/27/24 (Zithromax) benzonatate 100 mg capsule 100 mg PO TIDP PRN Cough #30 caps 04/27/24 methylprednisolone 4 mg tablets in 4 mg PO DIRECTED 6 days #21 tabs 04/27/24 a dose pack Allergies Allergy/AdvReac Type Severity Reaction Status Date / Time lisinopril Allergy Cough Verified 05/27/23 14:25 Worker's Comp Is this a Worker's Comp case?: No [facility] Disclaimer: The information contained in this section may have been updated after the patient was seen, as this information can be updated by other users. Medical History (Updated 04/27/24 @ 18:07 by Macros Flaherty APRN) Lymph node sarcoidosis GERD (gastroesophageal reflux disease) Hilar lymphadenopathy Sleep apnea Hyperlipidemia Hypertension Surgical History History of hernia surgery History of lumbar surgery History of appendectomy Family History Other Cancer Diabetes Hypertension Social History Smoking Status: Never smoker second hand exposure: No alcohol intake: never substance use type: denies use current occupational status: employed Travel in the last 8 weeks: [place] the [place] household members: spouse housing: house current occupation: [employer] current occupational exposures/hazards: No caffeine: Yes Have you lived/traveled outside [place] in past 30 days?: No Contact w/someone who lives/traveled outside [place] past 30 days?: No Exposure to someone with infectious disease in past 14 days?: No Do you have a fever (greater than 100.4 F or 38 C)?: No Have you tested positive for COVID-19: No Exposed to someone with COVID-19 in past 14 days?: No Do you have a sore throat?: No Do you have a cough?: Yes Do you have any weakness?: No Do you have any diarrhea?: No Are you experiencing any unusual bleeding?: No Do you have any muscle aches/pain?: No Do you have any abdominal pain?: No Are you experiencing loss of taste or smell?: No ROS Obtained: Yes All systems reviewed & no additional complaints except as documented Constitutional Constitutional: Denies chills and Denies fever(s) Eyes Eyes: Denies eye discharge ENT Ears, Nose, Mouth, and Throat: Denies dizziness, Denies otalgia and Denies sore throat Cardiovascular Cardiovascular: Denies chest pain Respiratory Respiratory: Denies shortness of breath, Denies chest congestion, Denies cough, Denies stridor and Denies wheezing Gastrointestinal Gastrointestingal: Denies nausea or vomiting Musculoskeletal Musculoskeletal: Reports system reviewed and no additional complaints, except as documented and Denies arthralgias Integumentary/Breasts Skin/Breast: Denies rash Neurologic Neurologic: Denies dizziness and Denies paresthesias Allergic/Immunologic Allergic/Immunologic: Denies wheezing Physical Exam General General appearance: alert and in no apparent distress Head Head exam: atraumatic, normocephalic and normal inspection Eye Eye exam: Present normal appearance, PERRL and EOMI ENT ENT exam: Present mucous membranes moist and normal external ear exam Expanded ENT Exam TM/Canal exam: Bilateral TM: erythema and bulging Nose exam: Absent sinus tenderness Mouth exam: Present normal external inspection; Absent drooling Teeth exam: Present normal inspection Throat exam: Present tonsillar erythema, tonsillomegaly and tonsillar exudate Neck Neck exam: Present normal inspection, full ROM and trachea midline; Absent tenderness, meningismus or lymphadenopathy Chest Chest inspection: Present normal inspection and symmetric chest wall rise; Absent tenderness Respiratory Respiratory exam: Present normal lung sounds bilaterally; Absent respiratory distress, wheezes, stridor or accessory muscle use Cardiovascular Cardiovascular exam: Present regular rate and normal rhythm; Absent systolic murmur or diastolic murmur Abdominal Exam Abdominal exam: Present soft and normal bowel sounds; Absent distention, tenderness, guarding, rebound or rigidity Extremities Exam Extremities exam: Present normal inspection and normal capillary refill; Absent calf tenderness Back Exam Back exam: Present normal inspection and full ROM; Absent tenderness, CVA tenderness (R) or CVA tenderness (L) Neurological Exam Neurological exam: Present alert, oriented X3 and CN II-XII intact Psychiatric Psychiatric exam: Present normal affect and normal mood Skin Skin exam: Present warm, dry, intact and normal color Medical Decision Making Medical Records Medical records reviewed: No I reviewed the patient's medical records. Screening: Per USPSTF and CDC recommendations, given the prevalence of disease in our region, it is our hospital?s policy to screen for HIV and viral Hepatitis for all patients aged 18 and over and those with ongoing risk factors. Lucio Inquiry Pt receiving controlled substance: No Vital Signs: 04/27/24 17:10 Temperature 98.7 F Temperature Source Oral Pulse Rate [Right Radial] 108 H Respiratory Rate 18 Blood Pressure [Left Arm] 113/73 Blood Pressure Mean [Left Arm] 86 02 Sat by Pulse Oximetry 100 Lab Data Lab results reviewed: Yes I reviewed the patient's lab results. Orders (Tests/Meds): ORDERS Category Date Time Status CXR 2 view (NOT portable) [XR chest 2V] Stat Exams 04/27/24 16:50 Taken
[2024-04-27 17:55] LABS: UTC Influenza A Antigen Negative (Negative); UTC Influenza B Antigen Negative (Negative)
[2024-04-27 18:08] VITALS: BP 113/73; PULSE 108; RESP 18; TEMP 37.1
[2024-04-27 18:42] LABS: Coronavirus 19, PCR Not Detected (NotDetected); Influenza B, PCR Not Detected (NotDetected)
[2024-04-27 19:14] LABS: Influenza A, PCR Detected (NotDetected)
== END 2024-04-27 18:13 | disposition home or self-care (01) ==
PROVIDERS: Emergency Provider Nurse Practitioner Family; PCP Family Medicine
DX: J20.9 Acute bronchitis, unspecified (principal); B34.9 Viral infection, unspecified
CPT/HCPCS: 71046; 87636; 87804; 99212; G0381

== ENCOUNTER 2024-09-25 09:28 | Outpatient (CLI) | payer BC, SELFPAY ==
--- OUTSIDE RECORDS SUMMARY | 2024-06-09 10:50 | XMS_ITS | Encounter Summary ---
Author Organization Healthcare Address [address] [place] [address] Care Team Providers Care Window Machine Operator Name Role Phone Khang Gustafson MD Primary Care Provider + [phone] Surekha Dolan Unavailable [phone] Encounter Details Date Type Department Care Team (Late st Contact Info) Description 06/09/2024 10:50 AM EDT [facility] Visit [facility] [address] [place] [address] Surekha Dolan PA [address] [place] [address] BPH with elevated PSA (Primary Dx) Social History Tobacco Use Types Packs/Day Years Used Date Smoking Tobacco: Never Smokeless Tobacco: Never Alcohol Use Standard Drinks/Week Comments Yes 0 (1 standard drink = 0.6 oz pure alcohol) Alcoholic Drinks/day: Social alcohol use PHQ-2 Answer Date Recorded Patient Health Questionnaire-2 Score 0 06/30/2024 PHQ-9 Answer Date Recorded Patient Health Questionnaire-9 Score 0 06/09/2024 PHQ-2A Answer Date Recorded Patient Health Questionnaire-2 Score 0 07/24/2022 Sex and Gender Information Value Date Recorded Sex Assigned at Not on file Legal Sex Male 8:55 PM EDT Gender Identity Not on file Sexual Orientation Not on file documented as of this encounter Last Filed Vital Signs Vital Sign Reading Time Taken Comments Blood Pressure 135/82 06/09/2024 10:35 AM EDT Pulse 80 06/09/2024 10:35 AM EDT Temperature 36.7 C (98.1 F) 06/09/2024 10:35 AM EDT Respiratory Rate - - Oxygen Saturation 100% 06/09/2024 10:35 AM EDT Inhaled Oxygen Concentration - - Weight 108 kg (238 lb 1.6 oz) 06/09/2024 10:35 A M EDT Height 185.4 cm (6' 1 ) 06/09/2024 10:35 AM EDT Body Mass Index 31.41 06/09/2024 10:35 AM EDT documented in this encounter Functional Status * Over the past 2 weeks, how often have you been bothered by any of the following problems? Question Answer Date of Assessment Author Little interest or pleasure in doing things Not at all 06/30/2024 8:27 AM EDT Day, Isa Gaviria Feeling down, depressed, or hopeless Not at all 06/17 8:27 AM EDT Day, Isa Gaviria Patient Health Questionnaire-2 Score 0 06/17 8:27 AM EDT Day, Isa Gaviria * Question Answer Date of Assessment Author Trouble falling or staying asleep, or sleeping too much Not at all 06/09/2024 10:36 AM Russ Da Silva Feeling tired or having roxie le energy Not at all 06/09/2024 10:36 AM Russ Da Silva Poor appetite or overeating Not at all 06/09/2024 10 :36 AM Russ Da Silva Feeling bad about yourself - or that you are a failure or have let yourself or your family down Not at all 06/09/2024 10:36 AM Russ Oshea Trouble concentrating on thi ngs, such as reading the newspaper or watching television Not at all 06/09/2024 10:36 AM Russ Da Silva Moving or speaking so slowly that other people could have noticed? Or the opposite - being so fidgety or restless that you have been moving around a lot more than usual. Not at all 06/09/2024 10:36 AM Russ Da Silva Thoughts that you would be b alesha off or hurting yourself in some way Not at all 06/09/2024 10:36 AM Russ Da Silva Patient Health Questionnaire -9 Score 0 06/09/2024 10:36 AM Russ Da Silva * If you checked off any problems on this questionnaire so far, Question Answer Date of Assessment Author How difficult have these problems made it for you to do your work, take care of things at home, or get along with other people? Not difficult at all 06/09/2024 10:36 AM Russ Da Silva documented as of this encounter Miscellaneous Notes * Progress Notes - Surekha Dolan PA - 06/09/2024 10:50 AM EDT Subjective Patient ID: Bharathi Dumont is a 63 y.o. male. HPI Patient is a 63 yo male who presented 08/06 with elevated psa as well as chronic right testicle pain. Previous ultrasound showed bilateral microlithiasis. He reports PSA elevated since 2015 at which time it was ~13. He underwent biopsy by Dr Piedra whichwas negative. Pathology is not available for review at time of this encounter. He has since seen Brandon with PSA increased to 15, per outside notes from 2018. Multiparametric MRI in 2020 which revealed 100gm gland, overall PIRADS 1. He started finasteride, taking daily and tolerating well. LUTS Are stable and PSA decreased as expected, in 2021 at which time PSA was 10.70 ng/ml and symptoms were stable. he had ureteroscopy with Dr Erwin for stone mgmt in 2022. -Patient was last seen by me in 12/2023 at which time PSA showed interval increase to 14ng/ml . LUTS were stable on finasteride. We did discuss outlet procedure at that time. -Today he follows up after undergoing mpMRI which shows 70gm gland, and overall PIRADS 2. PSA is pending. MR PROSTATE W AND WO IV CONTRAST FINDINGS: Size: 5.3 x 5.2 x 5.3 cm with a volume of 70.0 cubic cm PSA Density: 0.2 ng/mL/mL IMPRESSION: Overall PI-RADS category: 2 Low (clinically significant cancer is unlikely to be present) PVR: 11ml. Objective Physical Exam Vitals reviewed. Constitutional: Appearance: Normal appearance. Pulmonary: Effort: Pulmonary effort is normal. Neurological: Mental Status: He is alert and oriented to person, place, and time. Psychiatric: Mood and Affect: Mood normal. Behavior: Behavior normal. Thought Content: Thought content normal. Assessment/Plan Diagnoses and all orders for this visit: BPH with elevated PSA Comments: -prior negative biopsy -PSA is pending today -MRI is reassuring, overall PIRADS 2, 70gm gland, but PSAD is 0,2ng/ml/ml I will call him with PSA results. We did again discuss outlet procedure. His LUTs are stable, he is electing to defer any surgery at this time. Orders: - POC US Bladder Volume - PSA, diagnostic; Future - PSA, diagnostic; Future Other orders - finasteride (Proscar) 5 MG tablet; Take 1 tablet (5 mg) by mouth daily. Do not crush, chew, or split. Addendum: PSA resulted 15.70ng/ml. Discussed with patient by phone. Should consider repeat prostate biopsy. Will come in for biomarkers (Select MdX testing) next week. Appt scheduled Addendum 2: MdX resulted with elevated risk. TRUS/Bx ordered. Explained procedure in detail. Would benefit from nitrous . documented in this encounter Plan of Treatment Upcoming Encounters Date Type Department Care Team (Late st Contact Info) Description 11/24/2024 8:00 AM EDT Clinical Support [facility] [address] [place] [address] 06/09/2025 8:50 AM EDT Office Visit [facility] Urology [address] [place] [address] Surekha Dolan PA [address] [place] [address] Scheduled Orders Name Type Priority Associated Diagnoses Orde r Schedule PSA, diagnostic Lab Routine BPH with elevated PSA Expected: 12/10/2024 (Approximate), Expires: 12/10/2025 documented as of this encounter Procedures Procedure Name Priority Date/Time Associated Diagnosis Comments POC US BLADDER SCAN FOR VOLUME Routine 06/09/2024 10:47 AM EDT BPH with elevated PSA documented in this encounter Results * (ABNORMAL) PSA, diagnostic (06/09/2024 11:48 AM EDT) PSA, Diagnostic, Serum 15.70(H) 0.00 - 4.50 ng/mL 06/09/2024 1:30 PM EDT [facility] Blood Venous blood specimen / Unknown Venipuncture / Unknown 06/09/2024 11:48 AM EDT 06/09/2024 11:48 AM EDT Narrative [facility] - 06/09/2024 1:30 PM EDT Performed by [facility] electrochemiluminescent immunoassay which is standardized against the PSA Bivins Reference Standard (WHO 96/670). Results obtained with different test methods or kits cannot be used interchangeably. Surekha KEATING LAB BLOOD ORDERABLES Final Result [facility] [address] [place] [address] * POC US Bladder Volume (06/09/2024 10:47 AM EDT) Urine, Volume 11 mL IMAGING Anatomical Region Laterality Modality Other us Surekha KEATING IMG POINT OF CARE ULTRASOUN D Final Result documented in this encounter Visit Diagnoses Diagnosis BPH with elevated PSA- Primary documented in this encounter Additional Health Concerns Assessment Noted Time PHQ-9 Depression Total Score: 0 06/10/19 25 10:36 AM EDT A fall risk assessment has been complete d for the patient 06/09/2024 10:36 AM EDT A Body Mass Index follow-up plan has been documented for the patient 06/19/2024 9:29 AM EDT documented as of this encounter Care Teams Window Machine Operator Relationship Specialty Start Date End Date Khang Gustafson MD [facility] [address] [address] PCP - General 07/30/20 Surekha Dolan PA [address] [address] Physician Motion Picture Set Worker Urology 06/09/24 documented as of this encounter
--- OUTSIDE RECORDS SUMMARY | 2024-08-18 12:30 | XMS_ITS | Encounter Summary ---
Author Organization Healthcare Address [address] [place] [address] Care Team Providers Care Waste Machine Offbearer Name Role Phone Khang Gustafson MD Primary Care Provider + [phone] Surekha Dolan Unavailable [phone] Reason for Visit * Other Medical (Routine) - Closed Specialty Diagnoses / Procedures Referred By Claudia eldridge Referred To Contact Urology Diagnoses BPH with elevated PSA Procedures TRUS Bx (Transrectal) Surekha Dolan PA [address] [place] [address] Phone: tel: fax: Referral ID Status Reason Start Date Expiration Date Visits Re quested Visits Authorized [id number] Closed 07/28/2024 01/27/2026 1 1 Encounter Details Date Type Department Care Team ([facility] Contact Info) Description 08/18/2024 12:30 PM EDT Office Visit Medical Office Building Urology [address], [address] [place] [address] Miky Almanzar MD [address] [place] [address] BPH with elevated PSA (Primary [...] placed in this encounter. Miky Almanzar MD Service Control Operator Department of Urology History of Present Illness: Greg Dumont is a 63 y.o. male from [facility] [address] who returns in follow-up for elevated PSA. The patient has an elevated PSA history up to 15.7 and underwent MRI prostate on 06/09/2024 with overall PI-RADS 2 findings. His gland size measured 70 g with the overall PSA density 0.2. He additionally underwent select MDX testing which showed 44% chance of detecting prostate cancer with a 17% probability of Amigo 7 or higher. He presents today for [...] Insecurity: No Food Insecurity (04/06/2023) Received from [facility] Food Insecurity Food run out past 12 months: Not on file Food did not last past 12 months: Not on file Transportation Needs: Not on file Physical Activity: Not on file Stress: Not on file Social Connections: Low Risk (04/06/2023) Received from [facility] Family and Community Support Help with Day to Day Activities: Not on file Feeling Lonely or Isolated: Not on file Intimate Partner Violence: Unknown (12/29/2022) Received from [facility] Abuse Screen Unsafe at Home or Work/School: Not on file Feels Threatened by Someone?: Not on file Does Anyone Keep You from Contacting Others or Doint Things Outside the Home?: Not on file Physical Sign of Abuse Present: Not on file Housing Stability: Low Risk (04/06/2023) Received from [employer] Housing Stability Living situation today: Not on [...] and 800 s/mm2 used to generate calculated n=8264 s/mm2 and ADC map; and an acquired high b =1400 s/mm2; axial 3D dynamic contrast-enhanced G1omgcylgf imaging with <10 sec temporal resolution were [...] Date/Time: 08/18/2024 12:37 PM Performed by: Chaitanya Barnse MD Authorized by: Surekha Dolan PA Consent: Consent obtained: Verbal and written Consent given by: Patient Risks, benefits, and alternatives were discussed: yes Risks discussed: Bleeding, infection and pain Alternatives discussed: No treatment [place] protocol: Procedure explained and questions answered to [...] chew, or split. 90 tablet 3 HYDROcodone-acetaminophen (Holdrege) 7.5-325 MG tablet if needed. levoFLOXacin (Levaquin) [...] Description 11/24/2024 8:00 AM EDT Clinical Support [facility] [address] [place] [address] 06/09/2025 8:50 AM EDT Office Visit [facility] Urology [address], [address] [place] [address] Surekha Dolan PA [address] [place] [address] documented as of this encounter Procedures Procedure Name Priority Date/Time Associated Diagnosis Comments SURGICAL PATHOLOGY EXAM Routine 08/18/2024 1:18 PM EDT BPH with elevated PSA TRUS BIOPSY (TRANSRECTAL) Routine 08/18/2024 12:37 PM EDT BPH with elevated PSA documented in this encounter Results * Surgical Pathology Exam (08/18/2024 1:18 PM EDT) Case Report Surgical Pathology Case: [id number] Authorizing Provider: Miky Almanzar MD Collected: 08/18/2024 1318 Ordering Location: Medical Office Building Received: 08/18/2024 1524 Urology Pathologist: Mercedez Kilgore MD Specimens: A) - Prostate, 1 left base B) - Prostate, 2 right base C) - Prostate, 3 left mid D) - Prostate, 4 right mid E) - Prostate, 5 left apex F) - Prostate, 6 right apex 08/21/2024 11:11 AM EDT [facility] Final Diagnosis A. PROSTATE, LEFT BASE, BIOPSY: - BENIGN PROSTATE TISSUE. B. PROSTATE, RIGHT BASE, BIOPSY: - BENIGN PROSTATE TISSUE. C. PROSTATE, LEFT MID, BIOPSY: - BENIGN PROSTATE TISSUE. D. PROSTATE, RIGHT MID, BIOPSY: - BENIGN PROSTATE TISSUE. E. PROSTATE, LEFT APEX, BIOPSY: - BENIGN PROSTATE TISSUE. F. PROSTATE, RIGHT APEX, BIOPSY: - BENIGN PROSTATE TISSUE. 08/21/2024 11:11 AM EDT [facility] at [facility] EDT Clinical Information elelvated psa N40.0, R97.20 - BPH with elevated PSA [ICD-10-CM] 08/21/2024 11:11 AM EDT [facility] Gross Description A. 1 LEFT [...] Nithya B Pettey 08/21/2024 11:11 AM EDT [facility] Tissue Prostate / Unknown Non-blood [...] MD LAB PATHOLOGY ORDERABLES Fi nal Result [facility] [address] [place] [address] * TRUS BIOPSY (TRANSRECTAL) (08/18/2024 12:37 PM [...] infection and pain Alternatives discussed: No treatment [place] protocol: Procedure explained and questions answered to [...] documented as of this encounter Care Teams Waste Machine Offbearer Relationship Specialty Start Date End Date Khang Gustafson MD [address] [facility] [address] [place] [address] PCP - General 07/30/20 Surekha Dolan PA [address] [place] [address] Physician Wedding Planner Urology 06/09/24 documented as of this encounter
--- OUTSIDE RECORDS SUMMARY | 2024-09-25 09:30 | XMS_ITS | Encounter Summary ---
Author Organization Healthcare Address [address] [place] [address] Care Team Providers Care Traffic Monitor Specialist Name Role Phone Khang Gustafson MD Primary Care Provider + [phone] Surekha Dolan Unavailable [phone] Encounter Details Date Type Department Care Team (Latest Contact Info) Description 08/18/2024 Travel Social History Tobacco Use Types Packs/Day Years [...] on file documented as of this encounter Functional Status * AUDIT-C Score Answer Date of Assessment Author 0 08/18/2024 12:16 PM EDT Rosie Guzman * Question Answer Date of Assessment Author Q1: How often do you have a drink containing alcohol? Never 08/18/2024 12:16 PM Russ Da Silva Q2: How many drinks containing alcohol do you have on a typical day when you are drinking? Patient does not drink 08/18/2024 12:16 PM Russ Da Silva Q3: How often do you have six or more drinks on one occasion? Never 08/18/2024 12:16 PM Russ Da Silva * Over the past 2 weeks, how [...] Questionnaire -9 Score 0 08/18/2024 12:18 PM EDT uRss Guzman * If you checked off any problems on this questionnaire so far, Question Answer Date of Assessment Author How difficult have these problems made it for you to do your work, take care of things at home, or get along with other people? Not difficult at all 08/18/2024 12:18 PM EDT Russ Guzman documented as of this encounter Plan of Treatment Upcoming Encounters Date Type Department Care Team (Late st Contact Info) Description 11/24/2024 8:00 AM EDT Clinical Support [facility] [address] [place] [address] 06/09/2025 8:50 AM EDT Office Visit [facility] Urology [address], [address] [place] [address] Surekha Dolan PA [address] [address] documented as of this encounter Visit Diagnoses Not on filedocumented in this encounter Additional Health Concerns Assessment Noted Time PHQ-9 Depression Total Score: 0 08/19/19 12:18 PM EDT A fall risk assessment has been complete d for the patient 08/18/2024 12:18 PM EDT A Body Mass Index follow-up plan has been documented for the patient 08/18/2024 1:32 PM EDT documented as of this encounter Care Teams Traffic Monitor Specialist Relationship Specialty Start Date End Date Khang Gustafson MD [address] [facility] [address] [place] [address] PCP - General 07/30/20 Surekha Dolan PA [address] [phone] Physician Performance Improvement Manager Urology 06/09/24 documented as of this encounter
--- OUTSIDE RECORDS SUMMARY | 2024-09-25 09:30 | XMS_ITS | Encounter Summary ---
Author Organization Healthcare Address [address] [place] [address] Care Team Providers Care Child Psychometrist Name Role Phone Khang Gustafson MD Primary Care Provider + [phone] Surekha Dolan Unavailable [phone] Reason for Visit * Reason Onset Date Comments HCN Clinical Concern/Question 07/16/2024 HCN Status Update Call #1 07/16/2024 HCN Status Update Call #2 07/16/2024 Encounter Details Date Type Department Care Team (Late st Contact Info) Description 07/16/2024 Telephone [facility] [address] [place] [address] Surekha Dolan PA [address] [place] [address] HCN Clinical Concern/Question; HCN Status Update Call #1; HCN Status Update Call #2 Social History Tobacco Use Types Packs/Day Years [...] on file documented as of this encounter Miscellaneous Notes * Telephone Encounter - Surekha Dolan PA - 07/28/2024 3:58 PM EDT Discussed results by phone. Scheduling trus/bx. * Telephone Encounter - Dacia Fuentes - 07/28/2024 10:17 AM EDT Status Update Call #2 2nd call regarding the status of the initial request. Best contact number: [phone] (home) Optimal time of day to reach caller: ANYTIME Additional comments/information from caller: Patient is calling back please try again Note: Please do not reply to this message. Follow-up communication and further actions as a result of this message need to be communicated with the patient directly, if the patient is not active onMyChart. If the patient is active on MyChart, they will receive notification of the communication/outcome via Theatrot. * Telephone Encounter - Surekha Dolan PA - 07/25/2024 3:38 PM EDT Left additional VM message. * Telephone Encounter - Surekha Dolan PA - 07/24/2024 3:30 PM EDT Left additional VM at both numbers. Will continue to try and reach him. * Telephone Encounter - Karl Thompson - 07/16/2024 4:20 PM EDT Status Update Call #1 1st call regarding the status of the initial request. Best contact number: [phone] (mobile) Optimal time of day to reach caller: ANYTIME Additional comments/information from caller: returning call to Provider in regards to results Note: Please do not reply to this message. Follow-up communication and further actions as a result of this message need to be communicated with the patient directly, if the patient is not active onMyChart. If the patient is active on MyChart, they will receive notification of the communication/outcome via MyChart. * Telephone Encounter - Dacia Fuentes - 07/16/2024 1:42 PM EDT Clinical Concern/Question Reason for Call: Retunring missed call try both numbers Best contact number: [phone] (mobile) Optimal time of day to reach caller: ANYTIME Additional comments/information from caller: None Note: Please do not reply to this message. Follow-up communication and further actions as a result of this message need to be communicated with the patient directly, if the patient is not active onMyChart. If the patient is active on MyChart, they will receive notification of the communication/outcome via MyChart. documented in this encounter Plan of Treatment Upcoming Encounters Date Type Department Care Team (Late st Contact Info) Description 11/24/2024 8:00 AM EDT Clinical Support [facility] [address] [place] [address] 06/09/2025 8:50 AM EDT Office Visit [facility] Urology [address] [place] [address] Surekha Dolan PA [address] [place] [address] documented as of this encounter Visit Diagnoses Not on filedocumented in this encounter Additional Health Concerns Assessment Noted Time PHQ-9 Depression Total Score: 0 06/10/19 10:36 AM EDT A fall risk assessment has been complete d for the patient 06/30/2024 8:28 AM EDT A Body Mass Index follow-up plan has been documented for the patient 06/30/2024 8:37 AM EDT documented as of this encounter Care Teams Child Psychometrist Relationship Specialty Start Date End Date Khang Gustafson MD [facility] [place] [address] PCP - General 07/30/20 Surekha Dolan PA [id number] [place] [address] Physician Rotary Drier Feeder Urology 06/09/24 documented as of this encounter
--- OUTSIDE RECORDS SUMMARY | 2024-09-25 09:30 | XMS_ITS | Encounter Summary ---
Author Organization Healthcare Address [address] [place] [address] Care Team Providers Care Tap Dancer Name Role Phone Khang Gustafson MD Primary Care Provider + [phone] Surekha Dolan Unavailable [phone] Reason for Visit * Reason Comments Med Refill Encounter Details Date Type Department Care Team (Late st Contact Info) Description 12/26/2022 Refill [facility] [address] [place] [address] Surekha Dolan PA [address] [place] [address] Social History Tobacco Use Types Packs/Day Years Used Date Smoking Tobacco: Never Smokeless Tobacco: Never Alcohol Use Standard Drinks/Week Comments Yes 0 (1 standard drink = 0.6 oz pure alcohol) Alcoholic Drinks/day: Social alcohol use PHQ-2 Answer Date Recorded Patient Health Questionnaire-2 Score 0 07/24/2022 PHQ-2A Answer Date Recorded Patient Health Questionnaire-2 Score 0 07/24/2022 Sex and Gender Information Value Date Recorded Sex Assigned at Not on file Legal Sex Male 8:55 PM EDT Gender Identity Not on file Sexual Orientation Not on file documented as of this encounter Miscellaneous Notes * Telephone Encounter - Marlene Reddy, PharmD - 12/26/2022 10:41 AM EDT Refill request does not meet protocol. Sending to clinic for review. Additional info: Appointment compliance - Patient has not followed up in clinic as requested. Please review for scheduling and if refills are appropriate. documented in this encounter Plan of Treatment Upcoming Encounters Date Type Department Care Team (Late st Contact Info) Description 11/24/2024 8:00 AM EDT Clinical Support [facility] [address] [place] [address] 06/09/2025 8:50 AM EDT Office Visit [facility] Urology [address] [place] [address] Surekha Dolan PA [address] [address] documented as of this encounter Visit Diagnoses Not on filedocumented in this encounter Additional Health Concerns Assessment Noted Time A fall risk assessment has been complete d for the patient 07/24/2022 8:15 AM EDT A Body Mass Index follow-up plan has been documented for the patient 08/31/2022 8:14 AM EDT documented as of this encounter Care Teams Tap Dancer Relationship Specialty Start Date End Date Khang Gustafson MD [address] [address] PCP - General 07/30/20 Surekha Dolan PA [address] [place] [address] Physician Box Maker Urology 06/09/24 documented as of this encounter
--- OUTSIDE RECORDS SUMMARY | 2024-09-25 09:30 | XMS_ITS | Encounter Summary ---
Author Organization Healthcare Address [address] [place] [address] Care Team Providers Care Vice President Talent Management Name Role Phone Khang Gustafson MD Primary Care Provider + [phone] Surekha Dolan Unavailable [phone] Encounter Details Date Type Department Care Team (Late st Contact Info) Description 08/21/2024 Results [facility] [address] [place] [address] Miky Almanzar MD [address] [place] [address] Social History Tobacco Use Types [...] encounter Miscellaneous Notes * Telephone Encounter - Miky Almanzar MD - 08/21/2024 5:22 PM EDT Images from the original note were not included. I spoke to the patient about these results. He has scheduled follow up in May for PSA check. At his request I have started him on Flomax Surgical Pathology Exam: [id number] Order: [id number] Status: Final result Dx: BPH with elevated PSA Test Result Released: Yes (seen) Component Case Report Surgical Pathology Case: [id number] Authorizing Provider: Miky Almanzar MD Collected: 08/18/2024 1318 Ordering Location: Medical Office Building Received: 08/18/2024 [facility] Urology Pathologist: Mercedez Kilgore MD Specimens: A) - Prostate, 1 left base B) - Prostate, 2 right base C) - Prostate, 3 left mid D) - Prostate, 4 right mid E) - Prostate, 5 left apex F) - Prostate, 6 right apex Final Diagnosis A. PROSTATE, LEFT BASE, BIOPSY: - BENIGN PROSTATE TISSUE. B. PROSTATE, RIGHT BASE, BIOPSY: - BENIGN PROSTATE TISSUE. C. PROSTATE, LEFT MID, BIOPSY: - BENIGN PROSTATE TISSUE. D. PROSTATE, RIGHT MID, BIOPSY: - BENIGN PROSTATE TISSUE. E. PROSTATE, LEFT APEX, BIOPSY: - BENIGN PROSTATE TISSUE. F. PROSTATE, RIGHT APEX, BIOPSY: - BENIGN PROSTATE TISSUE. documented in this encounter Plan of Treatment Upcoming Encounters Date Type Department Care Team (Late st Contact Info) Description 11/24/2024 8:00 AM EDT Clinical Support [facility] [address], [address] [place] [address] 06/09/2025 8:50 AM EDT Office Visit [facility] Urology [address], [address] [place] [address] Surekha Dolan PA [address] [facility] [place] [address] documented as of this encounter Visit Diagnoses [...] documented as of this encounter Care Teams Vice President Talent Management Relationship Specialty Start Date End Date Khang Gustafson MD [address] [place] [address] PCP - General 07/30/20 Surekha Dolan PA [address] [address] Physician Rail Transit Operator Urology 06/09/24 documented as of this encounter
--- OUTSIDE RECORDS SUMMARY | 2024-09-25 09:30 | XMS_ITS | Encounter Summary ---
Author Organization [facility] Address [address] [place] [address] Care Team Providers Care Flatwork Folder Name Role Phone Khang Gustafson MD Primary Care Provider + [phone] Surekha Dolan Unavailable [phone] Reason for Referral * Other Medical (Routine) - Closed Specialty Diagnoses / Procedures Referred By Claudia eldridge Referred To Contact Urology Diagnoses BPH with elevated PSA Procedures TRUS Bx (Transrectal) Surekha Dolan PA [address] [facility] [address] [place] [address] Phone: tel: fax: Referral ID Status Reason Start Date Expiration Date Visits Re quested Visits Authorized [id number] Closed 07/28/2024 01/27/2026 1 1 Encounter Details Date Type Department Care Team (Late st Contact Info) Description 07/28/2024 Orders Only [facility] [address] [place] [address] Surekha Dolan PA [address] [facility] [address] [place] [address] BPH with elevated PSA (Primary [...] on file documented as of this encounter Plan of Treatment Upcoming Encounters Date Type Department Care Team (Late st Contact Info) Description 11/24/2024 8:00 AM EDT Clinical Support [facility] [address], [address] [place] [address] 06/09/2025 8:50 AM EDT Office Visit [facility] Urology [address] [place] [address] Surekha Dolan PA [address] [place] [address] documented as of this encounter Results * TRUS BIOPSY (TRANSRECTAL) (08/18/2024 12:37 PM [...] infection and pain Alternatives discussed: No treatment [place] protocol: Procedure explained and questions answered to [...] Diagnoses Diagnosis BPH with elevated PSA- Primary BPH with elevated PSA- Primary documented in this encounter Additional Health Concerns Assessment Noted Time PHQ-9 Depression Total Score: 0 06/10/19 25 10:36 AM EDT A fall risk assessment has been complete d for the patient 06/30/2024 8:28 AM EDT A Body Mass Index follow-up plan has been documented for the patient 06/30/2024 8:37 AM EDT documented as of this encounter Care Teams Flatwork Folder Relationship Specialty Start Date End Date Khang Gustafson MD [facility] [place] [address] PCP - General 07/30/20 Surekha Dolan PA [id number] [place] [phone] Physician Beekeeper Farmer Urology 06/09/24 documented as of this encounter
--- OUTSIDE RECORDS SUMMARY | 2024-09-25 09:30 | XMS_ITS | Encounter Summary ---
Author Organization Healthcare Address [address] [place] [address] Care Team Providers Care Child Psychiatrist Name Role Phone Khang Gustafson MD Primary Care Provider + [phone] Surekha Dolan Unavailable [phone] Encounter Details Date Type Department Care Team (Late st Contact Info) Description 07/24/2022 Abstract [facility] Audiology [address] [place] [address] Susi Marsh, [place] [address] [place] [address] Social History Tobacco Use Types [...] as of this encounter Functional Status * Over the past 2 weeks, how often have you been bothered by any of the following problems? Question Answer Date of Assessment Author Little interest or pleasure in doing things Not at all 07/24/2022 8:15 AM EDT Day, Isa D Feeling down, depressed, or hopeless Not at all 10/2022 8:15 AM EDT Day, Isa D Patient Health Questionnaire-2 Score 0 10/2022 8:15 AM EDT Day, Isa D documented as of this encounter Plan of Treatment Upcoming Encounters Date Type Department Care Team (Late st Contact Info) Description 11/24/2024 8:00 AM EDT Clinical Support [facility] [address] [place] [address] 06/09/2025 8:50 AM EDT Office Visit [facility] Urology [address] [place] [address] Surekha Dolan PA [address] [address] documented as of this encounter Visit Diagnoses Not on filedocumented in this encounter Additional Health Concerns Assessment Noted Time A fall risk assessment has been complete d for the patient 07/24/2022 8:15 AM EDT A Body Mass Index follow-up plan has been documented for the patient 07/24/2022 8:56 AM EDT documented as of this encounter Care Teams Child Psychiatrist Relationship Specialty Start Date End Date Khang Gustafson MD [facility] [address] [address] PCP - General 07/30/20 Surekha Dolan PA [address] [place] [address] Physician Relay Dispatcher Urology 06/09/24 documented as of this encounter
--- OUTSIDE RECORDS SUMMARY | 2024-09-25 09:31 | XMS_ITS | Encounter Summary ---
Author Organization Healthcare Address [address] [place] [address] Care Team Providers Care Mail Technician Name Role Phone Khang Gustafson MD Primary Care Provider + [phone] Surekha Dolan Unavailable [phone] Reason for Visit * Reason Comments Med Refill Encounter Details Date Type Department Care Team (Late st Contact Info) Description 08/07/2023 [facility]ill [facility] [address], [address] [place] [address] Surekha Dolan PA [address] [place] [address] Social History Tobacco Use Types [...] Telephone Encounter - Surekha Dolan PA - 08/08/2023 12:42 PM EDT Needs appt. * Telephone Encounter - Peri Amin PharmD - 08/08/2023 10:25 AM EDT Refill request does not meet protocol. Sending to clinic for review. Additional info: Appointment compliance - Patient has not followed up in clinic as requested. Please review for scheduling and if refills are appropriate. documented in this encounter Plan of Treatment Upcoming Encounters Date Type Department Care Team (Late st Contact Info) Description 11/24/2024 8:00 AM EDT Clinical Support [facility] [address], [address] [place] [phone] 06/09/2025 8:50 AM EDT Office Visit [facility] [address], [address] [place] [phone] Surekha Dolan PA [address] [place] [address] documented as of this encounter Visit Diagnoses Not on filedocumented in this encounter Additional Health Concerns Assessment Noted Time A fall risk assessment has been complete d for the patient 07/24/2022 8:15 AM EDT A Body Mass Index follow-up plan has been documented for the patient 08/31/2022 8:14 AM EDT documented as of this encounter Care Teams Mail Technician Relationship Specialty Start Date End Date Khang Gustafson MD [address] [facility] [address] [place] [address] PCP - General 07/30/20 Surekha Dolan PA [address] [place] [phone] Physician System Support Administrator Urology 06/09/24 documented as of this encounter
--- OUTSIDE RECORDS SUMMARY | 2024-09-25 09:31 | XMS_ITS | Clinical Summary ---
Author Organization [facility] Address [address] [place] [address] Care Team Providers Care Patient Accounting Representative Name Role Phone Khang Gustafson MD Primary Care Provider + [phone] Surekha Dolan Unavailable [phone] Allergies Active Allergy Reactions Criticality Noted Date Comments Lisinopril Cough Low 06/20/2022 Medications rosuvastatin (Crestor) 40 MG tablet Take 40 mg by mouth every night. Active valsartan (Diovan) 320 MG tablet Take 1 tablet (320 mg) by mouth 1 (one) time each day. Active cyanocobalamin 1000 MCG tabletIndicatio ns:Right testicular pain One tablet by mouth daily 90 tablet 3 2 Active Additional Information Patient not taking.Reported on 08/18/2024 tadalafil (Cialis) 5 MG tablet Take 1 tablet (5 mg total) by mouth 1 (one) time each day. 30 tablet 11 2 Active Additional Information Patient not taking.Reported on 08/18/2024 HYDROcodone-danitza taminophen (Burke) 7.5-325 MG tablet if needed. 3 Active Multiple Vitamin (multivitamin) tablet Take 1 tablet by mouth every night. Active tamsulosin (Flomax) 0.4 MG 24 hr capsule Take 1 capsule (0.4 mg) by mouth 1 (one) time each day with dinner. 14 capsule 3 Active Additional Information Patient not taking.Reported on 12/25/2023 finasteride (Proscar) 5 MG tablet TAKE ONE TABLET BY MOUTH ONCE A DAY. DO NOT CRUSH, CHEW OR SPLIT. 30 tablet 4 Active finasteride (Proscar) 5 MG tablet Take 1 tablet (5 mg) by mouth daily. Do not crush, chew, or split. 90 tablet 3 5 06/10/19 26 Active levoFLOXacin (Levaquin) 500 MG tabletIndicatio ns:BPH with elevated PSA 1 po morning of biopsy 1 tablet 5 Active tamsulosin (Flomax) 0.4 MG 24 hr capsule Take 1 capsule by mouth 1 time each day with dinner. 30 capsule 11 5 08/22/19 26 Active Encounters Date Type Department Care Team Description 08/21/2024 Results Follow-Up [facility]rology [address] [place] [phone] Miky Almanzar MD 08/18/2024 12:30 PM EDT Office Visit [facility], [address] [place] [phone] Miky Almanzar MD BPH with elevated PSA (Primary Dx) 08/18/2024 Travel 07/28/2024 Orders Only [address] [phone] Surekha Dolan PA BPH with elevated PSA (Primary Dx) 07/16/[address] [phone] Surekha Dolan PA HCN Clinical Concern/Question; HCN Status Update Call #1; HCN Status Update Call #2 07/04/2024 Telephone [facility], [address] [place] [phone] Surekha Dolan PA [facility] 06/30/2024 8:30 AM EDT Office Visit [facility] [phone] Surekha Dolan PA BPH with elevated PSA (Primary Dx) 06/30/2024 Travel from Last 3 Months Family History Medical History Relation Name Comments Bladder cancer Father Menorrhagia Father Relation Name Status Comments Father Social History Tobacco Use Types Packs/Day Years [...] on file Sexual Orientation Not on file Last Filed Vital Signs Vital Sign Reading Time Taken Comments Blood Pressure 132/86 08/18/2024 12:15 PM EDT Pulse 71 08/18/2024 12:15 PM EDT Temperature 36.7 C (98.1 F) 08/18/2024 12:15 PM EDT Respiratory Rate 18 06/30/2024 8:24 AM EDT Oxygen Saturation 100% 08/18/2024 12:15 PM EDT Inhaled Oxygen Concentration - - Weight 102 kg (224 lb 13.9 oz) 08/18/2024 12:15 PM EDT Height 185.4 cm (6' 1 ) 08/18/2024 12:15 PM EDT Body Mass Index 29.67 08/18/2024 12:15 PM EDT Plan of Treatment Upcoming Encounters Date Type Department Care Team (Late st Contact Info) Description 11/24/2024 8:00 AM EDT Clinical Support [facility] [address], [address] [place] [address] 06/09/2025 8:50 AM EDT Office Visit [facility] [address], [address] [place] [address] Surekha Dolan PA [address] [place] [address] Health Maintenance Due Date Last Done Comments [facility]-HIV Screening 1961 [facility]-Hepatitis C Screening 1961 [facility]-Infant/Child/Adol SDOH Screenings 1961 [facility]- SDOH Screenings 10/24/1979 [facility]-Adult SDOH Screenings 10/24/1979 [facility]-DTaP,Tdap,and Td Vaccines (1 - Tdap) 12/22/2004 12/21/2004 CT Colonography 2006 Colonoscopy 2006 FIT-DNA 2006 FIT 2006 FOBT 2006 Sigmoidoscopy 2006 [facility]-Colorectal Cancer Screening 2006 [facility]-Pneumococcal Vaccine: 50+ Years (1 of 1 - PCV) 10/24/2011 [facility]-Zoster Vaccines (1 of 2) 10/24/2011 [id number] Vaccine ( - season) 2023 01/21/2021, 04/27/2020, 03/26/2020 [facility]-Influenza Vaccine (#1) 2024 [facility]-Depression Screening 08/18/2025 08/18/2024, 0604/2024 [facility]-RSV Vaccine: 60+ Years or (1 - 1-dose 75+ series) 2036 [facility]-Hepatitis A Vaccines Aged Out 07/30/2018, 12/18 No longer eligible based on patient's age to complete this topic [facility]-Obesity Intervention Completed 025, 06/30/2024, 06/09/2024, Additional history exists HPV Vaccines Aged Out No longer eligi ble based on patient's age to complete this topic [facility]-HIB Vaccines Aged Out No longer e ligible based on patient's age to complete this topic [facility]-IPV Vaccines Aged Out No longer e ligible based on patient's age to complete this topic [facility]-Rotavirus Vaccines Aged Out No lo nger eligible based on patient's age to complete this topic Medical Devices Implanted Type Area Manager Of Patient Device Identifier Shelf Expiration Date Model / Serial / Lot Stent Ureteral Double Pigtail Pos 5fr 26cm - [id number] Implanted:Qty: 1 on 08/28/2022 by Richardson Erwin MD at [facility] [id number] 02/06/2024 [id number] / / [id number] Procedures Procedure Name Priority Date/Time Associated Diagnosis Comments SURGICAL PATHOLOGY EXAM Routine 08/18/2024 1:18 PM EDT BPH with elevated PSA TRUS BIOPSY (TRANSRECTAL) Routine 08/18/2024 12:37 PM EDT BPH with elevated PSA from Last 3 Months Results * Surgical Pathology Exam (08/18/2024 1:18 PM EDT) Case Report Surgical Pathology Case: [id number] Authorizing Provider: Miky Almanzar MD Collected: 08/18/2024 1318 Ordering Location: Medical Office Building Received: 08/18/2024 [facility] Urology Pathologist: Mercedez Kilgore MD Specimens: A) - Prostate, 1 left base B) - Prostate, 2 right base C) - Prostate, 3 left mid D) - Prostate, 4 right mid E) - Prostate, 5 left apex F) - Prostate, 6 right apex 08/21/2024 11:11 AM EDT [facility] Final Diagnosis A. PROSTATE, LEFT BASE, BIOPSY: - BENIGN PROSTATE TISSUE. B. PROSTATE, RIGHT BASE, BIOPSY: - BENIGN PROSTATE TISSUE. C. PROSTATE, LEFT MID, BIOPSY: - BENIGN PROSTATE TISSUE. D. PROSTATE, RIGHT MID, BIOPSY: - BENIGN PROSTATE TISSUE. E. PROSTATE, LEFT APEX, BIOPSY: - BENIGN PROSTATE TISSUE. F. PROSTATE, RIGHT APEX, BIOPSY: - BENIGN PROSTATE TISSUE. 08/21/2024 11:11 AM EDT [facility] at 1111 EDT Clinical Information elelvated psa N40.0, R97.20 - BPH with elevated PSA [ICD-10-CM] 08/21/2024 11:11 AM EDT [facility] Gross Description A. 1 [...] Nithya B Pettey 08/21/2024 11:11 AM EDT [facility] Tissue Prostate / Unknown [...] MD LAB PATHOLOGY ORDERABLES Fi nal Result [facility] [address] [place] [address] * TRUS BIOPSY (TRANSRECTAL) (08/18/2024 12:37 PM [...] infection and pain Alternatives discussed: No treatment [facility] protocol: Procedure explained and questions answered to [...] Surekha KEATING UROLOGY ORDERABLES Final Re sult from Last 3 Months Insurance [facility] Care Teams Patient Accounting Representative Relationship Specialty Start Date End Date Khang Gustafson MD [address] [facility] [address] [place] [address] PCP - General 07/30/20 Surekha Dolan PA [address] [facility] [address] [place] [phone] Physician Telephone Advice Nurse Urology 06/09/24
--- OUTSIDE RECORDS SUMMARY | 2024-09-25 09:31 | XMS_ITS | Referral Summary ---
Author Organization [facility] ([place], [place], [place], [place]) Address [address] [place] [address] Care Team Providers Care Crystallographer Name Role Phone Unavailable Primary Care Provider Unavailabl e Social History Tobacco Use Types Packs/Day Years Used Date Smoking Tobacco: Never Assessed Food Insecurity Answer Date Recorded Food run out past 12 months Not on file 03/19 Food did not last past 12 months Not on file 04/06/2023 Employment Answer Date Recorded Help finding and keeping a job Not on file 0 04/06/2023 Family and Community Support Answer Lemuel e Recorded Help with Day to Day Activities Not on file 04/06/2023 Feeling Lonely or Isolated Not on file 04/06 Educational Attainment Answer Date Raul rded Speak language other than Jordanian at home Not on file 04/06/2023 Want help with school or training Not on file 04/06/2023 Substance Use Answer Date Recorded Used prescription meds for non-medical reasons N ot on file 04/06/2023 Used illegal drugs past 12 months Not on file 04/06/2023 Sex and Gender Information Value Date Recorded Sex Assigned at Not on file Legal Sex Male 7:03 PM CDT Gender Identity Not on file Sexual Orientation Not on file Plan of Treatment Not on file
--- OUTSIDE RECORDS SUMMARY | 2024-09-25 09:31 | XMS_ITS | Clinical Summary ---
Author Organization [facility] ([place], [place], [place], [place]) Address [address] [place] [address] Care Team Providers Care Sub Arc Operator Name Role Phone Unavailable Primary Care Provider [...] Date Raul rded Speak language other than Russian at home Not on file 04/06/2023 Want [...] Orientation Not on file Plan of Treatment Health Maintenance Due Date Last Done Comments CT Colonography 1961 Colonoscopy 1961 Colorectal Cancer Screening 1961 FOBT/FIT 1961 Fit-DNA (Cologuard) 1961 Sigmoidoscopy 1961 Depression Screening (12+) 1973 Tobacco Cessation Counseling and Screening (12+) 1973 HIV Screening 1976 Hepatitis C Screening 10/24/1979 Lipid Panel 1996 Pneumococcal 50+ years (1 of 1 - PCV) 10/24/2011 Shingles Vaccine (Zoster) (1 of 2) 10/24/2011 DTAP/TDAP/TD VACCINES (2 - T d or Tdap) 12/21/2014 12/21/2004 COVID-19 VACCINE ( season) 2023 01/21/2021, 04/27/2020, 03/26/2020 Influenza Vaccine (#1) 2024 Respiratory Syncytial Virus (RSV) Adult or (1 - 1-dose 75+ series) 2036
[2024-09-25 10:13] LABS: Blood Urea Nitrogen 10 mg/dl (9-20); Creatinine,Serum 1.00 mg/dl (0.66-1.25); Estimated Glomerular Filt Rate 76 ml/min (>60); GFR (African American) 92 ML/MIN (>60)
== END 2024-09-25 23:59 | disposition home or self-care (01) ==
LOC: LAB 09:28
PROVIDERS: PCP Family Medicine; Visit Provider Surgery
DX: R10.30 Lower abdominal pain, unspecified (principal)
CPT/HCPCS: 36415; 82565; 84520

== ENCOUNTER 2024-10-09 07:37 | Outpatient (CLI) | payer BC, SELFPAY ==
--- OUTSIDE RECORDS SUMMARY | 2024-08-18 12:30 | XMS_ITS | Encounter Summary ---
Author Organization Healthcare Address [address] [place] [address] Care Team Providers Care Fence Installer Helper Name Role Phone Khang Gsutafson MD Primary Care Provider + [phone] Surekha Dolan Unavailable [phone] Reason for Visit * Other Medical (Routine) - Closed Specialty Diagnoses / Procedures Referred By Claudia eldridge Referred To Contact Urology Diagnoses BPH with elevated PSA Procedures TRUS Bx (Transrectal) Surekha Dolan PA [address] [place] [address] Phone: tel: fax: Referral ID Status Reason Start Date Expiration Date Visits Re quested Visits Authorized [id number] Closed 07/28/2024 01/27/2026 1 1 Encounter Details Date Type Department Care Team ([facility] Contact Info) Description 08/18/2024 12:30 PM EDT Office Visit Medical Office Building Urology [address] [facility], [address] [place] [address] Miky Almanzar MD [address] [facility] [address] [place] [address] BPH with elevated PSA (Primary Dx) Social History Tobacco Use Types Packs/Day Years Used Date Smoking Tobacco: Never Passive Smoke Exposure: Never Smokeless Tobacco: Never Alcohol Use Standard Drinks/Week Comments Yes 0 (1 standard drink = 0.6 oz pure alcohol) Alcoholic Drinks/day: Social alcohol use PHQ-2 Answer Date Recorded Patient Health Questionnaire-2 Score 0 08/18/2024 PHQ-9 Answer Date Recorded Patient Health Questionnaire-9 Score 0 08/18/2024 AUDIT-C Answer Date Recorded Q1: How often do you have a drink containing alcohol? Never 08/18/2024 Q2: How many drinks containi ng alcohol do you have on a typical day when you are drinking? Patient does not drink Q3: How often do you have si x or more drinks on one occasion? Never 08/18/2024 PHQ-2A Answer Date Recorded Patient Health Questionnaire-2 Score 0 07/24/2022 Sex and Gender Information Value Date Recorded Sex Assigned at Not on file Legal Sex Male 8:55 PM EDT Gender Identity Not on file Sexual Orientation Not on file documented as of this encounter Last Filed Vital Signs Vital Sign Reading Time Taken Comments Blood Pressure 132/86 08/18/2024 12:15 PM EDT Pulse 71 08/18/2024 12:15 PM EDT Temperature 36.7 C (98.1 F) 08/18/2024 12:15 PM EDT Respiratory Rate - - Oxygen Saturation 100% 08/18/2024 12:15 PM EDT Inhaled Oxygen Concentration - - Weight 102 kg (224 lb 13.9 oz) 08/18/2024 12:15 PM EDT Height 185.4 cm (6' 1 ) 08/18/2024 12:15 PM EDT Body Mass Index 29.67 08/18/2024 12:15 PM EDT documented in this encounter Functional Status * AUDIT-C Score Answer Date of Assessment Author 0 08/18/2024 12:16 PM EDT Rosie Guzman * Question Answer Date of Assessment Author Q1: How often do you have a drink containing alcohol? Never 08/18/2024 12:16 PM EDT Russ Guzman Q2: How many drinks containing alcohol do you have on a typical day when you are drinking? Patient does not drink 08/18/2024 12:16 PM EDT Russ Guzman Q3: How often do you have six or more drinks on one occasion? Never 08/18/2024 12:16 PM EDT Russ Guzman * Over the past 2 weeks, how often have you been bothered by any of the following problems? Question Answer Date of Assessment Author Little interest or pleasure in doing things Not at all 08/18/2024 12:18 PM Russ Da Silva Feeling down, depressed, or hopeless Not at all 08/18/2024 12:18 PM Russ Da Silva Patient Health Questionnaire -2 Score 0 08/18/2024 12:18 PM Russ Da Silva * Question Answer Date of Assessment Author Trouble falling or staying asleep, or sleeping too much Not at all 08/18/2024 12:18 PM Russ Da Silva Feeling tired or having roxie le energy Not at all 08/18/2024 12:18 PM Russ Da Silva Poor appetite or overeating Not at all 08/18/2024 12 :18 PM Russ Da Silva Feeling bad about yourself - or that you are a failure or have let yourself or your family down Not at all 08/18/2024 12:18 PM Russ Oshea Trouble concentrating on thi ngs, such as reading the newspaper or watching television Not at all 08/18/2024 12:18 PM Russ Da Silva Moving or speaking so slowly that other people could have noticed? Or the opposite - being so fidgety or restless that you have been moving around a lot more than usual. Not at all 08/18/2024 12:18 PM Russ Da Silva Thoughts that you would be b alesha off or hurting yourself in some way Not at all 08/18/2024 12:18 PM Russ Da Silva Patient Health Questionnaire -9 Score 0 08/18/2024 12:18 PM Russ Da Silva * If you checked off any problems on this questionnaire so far, Question Answer Date of Assessment Author How difficult have these problems made it for you to do your work, take care of things at home, or get along with other people? Not difficult at all 08/18/2024 12:18 PM Russ Da Silva documented as of this encounter Miscellaneous Notes * Progress Notes - Chaitanya Barnes MD - 08/18/2024 12:30 PM EDTAssociated Order(s): TRUS Bx (Transrectal) with Nitrous Gas Pre-Procedure Diagnose(s): BPH with elevated PSA Post-Procedure Diagnose(s): BPH with elevated PSA Urology Clinic Note Assessment and Plan: Greg Dumont is a 63 y.o. male with elevated PSA (15.7) and prostate MRI findings overall PI-RADS 2, PSA density 0.2, gland size 70 g. He underwent select MDX testing which showed 44% chance of detecting prostate cancer with a 17% probability of Dion 7 or greater. He presents today for transrectal ultrasound-guided prostate biopsy. He underwent successful biopsy in clinic today with rocephin given as prophylaxis. We will call with pathology results to determine next steps. No orders of the defined types were placed in this encounter. Miky Almanzar MD Gas Welding Equipment Mechanic Department of Urology History of Present Illness: Greg Dumont is a 63 y.o. male from [facility] [address] who returns in follow-up for elevated PSA. The patient has an elevated PSA history up to 15.7 and underwent MRI prostate on 06/09/2024 with overall PI-RADS 2 findings. His gland size measured 70 g with the overall PSA density 0.2. He additionally underwent select MDX testing which showed 44% chance of detecting prostate cancer with a 17% probability of Christiana 7 or higher. He presents today for transrectal ultrasound-guided prostate biopsy . He has been on finasteride for 1.5 years. No blood thinners. No family history of prostate cancer. I personally reviewed and updated the patient's past medical, surgical, family, and social histories. Review of Systems: A complete 14 point ROS was performed and reviewed- please see HPI and scanned/signed intake form. Past Medical History[1] Surgical History[2] Family History[3] Social History Socioeconomic History Marital status: Spouse name: Not on file Number of children: Not on file Years of education: Not on file Highest education level: Not on file Occupational History Not on file Tobacco Use Smoking status: Never Passive exposure: Never Smokeless tobacco: Never Vaping Use Vaping status: Never Used Substance and Sexual Activity Alcohol use: Yes Comment: Alcoholic Drinks/day: Social alcohol use Drug use: Never Sexual activity: Defer Other Topics Concern Not on file Social History Narrative Not on file Social Drivers of Health Financial Resource Strain: Not on file Food Insecurity: No Food Insecurity (04/06/2023) Received from [employer] Food Insecurity Food run out past 12 months: Not on file Food did not last past 12 months: Not on file Transportation Needs: Not on file Physical Activity: Not on file Stress: Not on file Social Connections: Low Risk (04/06/2023) Received from [facility] Family and Community Support Help with Day to Day Activities: Not on file Feeling Lonely or Isolated: Not on file Intimate Partner Violence: Unknown (12/29/2022) Received from [facility] Abuse Screen Unsafe at Home or Work/School: Not on file Feels Threatened by Someone?: Not on file Does Anyone Keep You from Contacting Others or Doint Things Outside the Home?: Not on file Physical Sign of Abuse Present: Not on file Housing Stability: Low Risk (04/06/2023) Received from [employer] Housing Stability Living situation today: Not on file Living situation problems: Not on file Current Medications[4] Allergies[5] Physical Exam: Gen: obese, no acute distress Skin: Warm, dry, no obvious rashes or excoriations HEENT: Normocephalic, atraumatic, EOMI CV: Patient appears well perfused with regular rate, HDS Pulm: Normal rate, normal effort, symmetrical chest rise, no accessory muscle use Abd: Soft, nontender to palpation, nondistended MSK: No obvious limb deformities or swelling Neuro: Alert, answers questions appropriately, no obvious focal deficits Psych: Cooperative, normal mood and congruent affect Records Review: I personally reviewed I personally reviewed outside institution and internal imaging studies, imaging reports, labs, and provider notes as noted below and in the assessment and plan. Lab Results Component Value Date PSA 15.70 (H) 06/09/2024 PSA 14.10 (H) 12/25/2023 PSA 10.70 (H) 01/30/2022 === 06/09/24 === MR PROSTATE W AND WO IV CONTRAST - Narrative - CLINICAL INDICATION: 63 year old with elevated PSA. PSA: 14.1 ng/mL on 12/25/2023 MANISHA: N/A Biopsies: Per EMR office visit note 12/25/2023, outside biopsy performed with negative pathology results Prior therapy: N/A TECHNIQUE: Multiplanar, multisequence imaging of the pelvis in accordance with PI-RADS recommendations before and after intravenous administration of 10.8 mL Gadavist in the left antecubital fossa at 2.0 ml/secon a 3.0 T platform using a 18- channel external phased array coil. Dedicated three-plane small FOV JORGE ALBERTO T2; axial diffusion weighted imaging with b-values 50 and 800 s/mm2 used to generate calculated t=8187 s/mm2 and ADC map; and an acquired high b =1400 s/mm2; axial 3D dynamic contrast-enhanced Q4mkhmgmge imaging with <10 sec temporal resolution were acquired using 3 mm slice thickness in addition to full-pelvis pre contrast T1 JORGE ALBERTO and post-contrast axial and coronal fat suppressed 3D Gradient echo T1-weighted imaging. Advanced 3D workstation manipulation and review of the data set was performed by the interpreting physician to further define anatomy and possible pathology. Images of areas of interest were created utilizing various techniques. These images were saved and transferred to PACS if significant. COMPARISON: MR pelvis, 11/01/2020 FINDINGS: Size: 5.3 x 5.2 x 5.3 cm with a volume of 70.0 cubic cm PSA Density: 0.2 ng/mL/mL Quality: Adequate, mild geometric distortion on diffusion-weighted imaging from rectal distention does not compromise diagnostic confidence Hemorrhage: No Peripheral zone: Geographic areas of hypodensity without restricted diffusion, compatible with chronic prostatitis, fibrosis, or atrophy. Transition zone: Moderate heterogeneity with interval increase in number of typical and atypical BPH nodules. Focal finding as below. Lesion #1: Location: 1.4 cmleft apex TZ on series 4 image 18 T2: Moderately hypointense without extraprostatic extension T2 PI-RADS category: 2 DWI: Mildly hyperintense on high b-value DWI and markedly hypointense on ADC without extraprostaticextension DWI PI-RADS category: 3 DCE: Focal early enhancement, positive Prostate margin: None Lesion overall PI-RADS category: 2 Neurovascular bundles: Not involved Seminal Vesicles: Not involved Lymph Nodes: No lymphadenopathy. Bones: No osseous metastases. Other pelvic organs: Mild bladder wall thickening, consistent with chronic BPH obstruction. - Impression - Overall PI-RADS category: 2 Low (clinically significant cancer is unlikely to be present) CRITICAL RESULT: No. COMMUNICATION: Per this written report. By electronically signing this report, I, the attending physician, attest that I have personally reviewed the images/data for the above examination(s) and agree with the final edited report. Drafted by Mac Doll MD on 06/09/2024 8:25 AM Final report signed by Ledy Ziegler MD on 06/09/2024 9:14 AM Procedure: TRUS Bx (Transrectal) with Nitrous Gas Date/Time: 08/18/2024 12:37 PM Performed by: Chaitanya Barnes MD Authorized by: Surekha Dolan PA Consent: Consent obtained: Verbal and written Consent given by: Patient Risks, benefits, and alternatives were discussed: yes Risks discussed: Bleeding, infection and pain Alternatives discussed: No treatment [place] protocol: Procedure explained and questions answered to patient or proxy's satisfaction: yes Patient identity confirmed: Verbally with patient Sedation: Sedation type: Anxiolysis (Nitrous gas) Anesthesia: Anesthesia method: Local infiltration Local anesthetic: Lidocaine 1% w/o epi Procedure specific details: Procedure: Transrectal ultrasound with biopsy of prostate, US Guidance Indication(s) for the procedure include(s): elevated PSA Pre-procedure(s): antibiotic(s) was given prior to procedure. The procedure's risks and benefits were discussed with the patient. Informed consent was obtained prior to the procedure. We discussed possible complications and risks, including bleeding (urine, bowel, ejaculate), infection, urinary retention, pain and sampling error. Prior to the start of the procedure a time out was taken and the identity of the patient was confirmed via name and date of with the patient. The positioning of the patient was verified. Nitrous gas was given. The availability of the correct equipment was verified. The patient was placed in the left lateral decubitus position. The 7.0 mHz biplanar transrectal ultrasound probe was placed per rectum. Imaging in transverse and longitudinal views revealed the findings below. Prior to biopsy, local anesthesia (1% Xylocaine) was injected into the prostatic capsule.Biopsies were performed with the biopsy device as noted below. Findings: Digital rectal exam: no palpable lesions Prostate Volume: 75 g Seminal Vesicles: normal 12-core biopsy template performed; Biopsies were taken from the base, midline apex, and other areasas indicated bilaterally. The patient tolerated the procedure well. Complications: none. Patient Instructions: Call for temp > 101, inability to urinate, chills, continuous urinary/bowel bleeding and intolerable pain. Will contact with pathology to direct further care. Post-procedure details: Procedure completion: Tolerated well, no immediate complications [1] Past Medical History: Diagnosis Date BPH (benign prostatic hyperplasia) Chronic kidney disease stone Elevated PSA GERD (gastroesophageal reflux disease) HL (hearing loss) nico. hearing aids Hyperlipidemia Hypertension Kidney stone Personal history of other diseases of the circulatory system History of hypertension Sleep apnea cpap [2] Past Surgical History: Procedure Laterality Date ABDOMINAL SURGERY APPENDECTOMY COLONOSCOPY HERNIA REPAIR LUMBAR FUSION [3] Family History Problem Relation Name Age of Onset Bladder cancer Father Menorrhagia Father [4] Current Outpatient Medications Medication Sig Dispense Refill finasteride (Proscar) 5 MG tablet TAKE ONE TABLET BY MOUTH ONCE A DAY. DO NOT CRUSH, CHEW OR SPLIT.30 tablet 0 finasteride (Proscar) 5 MG tablet Take 1 tablet (5 mg) by mouth daily. Do not crush, chew, or split. 90 tablet 3 HYDROcodone-acetaminophen ([place]) 7.5-325 MG tablet if needed. levoFLOXacin (Levaquin) 500 MG tablet 1 po morning of biopsy 1 tablet 0 Multiple Vitamin (multivitamin) tablet Take 1 tablet by mouth every night. rosuvastatin (Crestor) 40 MG tablet Take 40 mg by mouth every night. cyanocobalamin 1000 MCG tablet One tablet by mouth daily (Patient not taking: Reported on 08/18/2024)90 tablet 3 tadalafil (Cialis) 5 MG tablet Take 1 tablet (5 mg total) by mouth 1 (one) time each day. (Patient not taking: Reported on 08/18/2024) 30 tablet 11 tamsulosin (Flomax) 0.4 MG 24 hr capsule Take 1 capsule (0.4 mg) by mouth 1 (one) time each day with dinner. (Patient not taking: Reported on 12/25/2023) 14 capsule 0 valsartan (Diovan) 320 MG tablet Take 1 tablet (320 mg) by mouth 1 (one) time each day. (Patient not taking: Reported on 08/18/2024) Current Facility-Administered Medications Medication Dose Route Frequency Provider Last Rate Last Admin lidocaine (Xylocaine) 1 % injection - Pyxis Override Pull [5] Allergies Allergen Reactions Lisinopril Cough Cosigned by Miky Almanzar MD at 08/18/2024 1:30 PM EDT Associated attestation - Miky Almanzar MD - 08/18/2024 1:30 PM EDT I saw and evaluated the patient with the resident/fellow. I discussed the case with the resident/fellow and agree with the findings and plan as documented. and I was present for the entirety of the procedure(s). documented in this encounter Plan of Treatment Upcoming Encounters Date Type Department Care Team (Late st Contact Info) Description 11/24/2024 8:00 AM EDT Clinical Support [facility] [address] [place] [address] 06/09/2025 8:50 AM EDT Office Visit [facility] Urology [address] [place] [address] Surekha Dolan PA [address] [place] [address] documented as of this encounter Procedures Procedure Name Priority Date/Time Associated Diagnosis Comments SURGICAL PATHOLOGY EXAM Routine 08/18/2024 1:18 PM EDT BPH with elevated PSA TRUS BIOPSY (TRANSRECTAL) Routine 08/18/2024 12:37 PM EDT BPH with elevated PSA documented in this encounter Results * Surgical Pathology Exam (08/18/2024 1:18 PM EDT) Case Report Surgical Pathology Case: [id number] Authorizing Provider: Miky Almanzar MD Collected: 08/18/2024 1318 Ordering Location: Medical Office Building Received: 08/18/2024 1526 Urology Pathologist: Mercedez Kilgore MD Specimens: A) - Prostate, 1 left base B) - Prostate, 2 right base C) - Prostate, 3 left mid D) - Prostate, 4 right mid E) - Prostate, 5 left apex F) - Prostate, 6 right apex 08/21/2024 11:11 AM EDT [facility] Final Diagnosis A. PROSTATE, LEFT BASE, BIOPSY: - BENIGN PROSTATE TISSUE. B. PROSTATE, RIGHT BASE, BIOPSY: - BENIGN PROSTATE TISSUE. C. PROSTATE, LEFT MID, BIOPSY: - BENIGN PROSTATE TISSUE. D. PROSTATE, RIGHT MID, BIOPSY: - BENIGN PROSTATE TISSUE. E. PROSTATE, LEFT APEX, BIOPSY: - BENIGN PROSTATE TISSUE. F. PROSTATE, RIGHT APEX, BIOPSY: - BENIGN PROSTATE TISSUE. 08/21/2024 11:11 AM EDT [facility] at [facility] EDT Clinical Information elelvated psa N40.0, R97.20 - BPH with elevated PSA [ICD-10-CM] 08/21/2024 11:11 AM EDT [facility] Gross Description A. 1 LEFT BASE Received in formalin labeled left base , are 2 white-ramirez soft tissue cores that range from 1.0-1.8 cm in length and up to 0.1 cm in diameter. Entirely submitted in cassette A1. Cold Time: 0 Nithya B Pettey B. 2 RIGHT BASE Received in formalin labeled right base , are 2 white-ramirez soft tissue cores that range from 1.6-1.8 cm in length and up to 0.1 cm in diameter. Entirely submitted in cassette B1. Cold Time: 0 Nithya B Pettey C. 3 LEFT MID Received in formalin labeled left mid , are 2 white-ramirez soft tissue cores that range from 0.8-0.9 cm in length and up to 0.1 cm in diameter. Entirely submitted in cassette C1. Cold Time: 0 Nithya B Pettey D. 4 RIGHT MID Received in formalin labeled right mid , are 2 white-ramirez soft tissue cores that range from 1.3 to 1.4 cm in length and up to 0.1 cm in diameter. Entirely submitted in cassette D1. Cold Time: 0 Nithya B Pettey E. 5 LEFT APEX Received in formalin labeled left apex , are 2 white-ramirez soft tissue cores that range from 0.4 to 1.6 cm in length and up to 0.1 cm in diameter. Entirely submitted in cassette E1. Cold Time: 0 Nithya B Pettey F. 6 RIGHT APEX Received in formalin labeled right apex , are 2 white-ramirez soft tissue cores that range from 1.2-1.4 cm in length and up to 0.1 cm in diameter. Entirely submitted in cassette F1. Cold Time: 0 Nithya B Pettey 08/21/2024 11:11 AM EDT [facility] Tissue Prostate / Unknown Non-blood Collection / Unknown 08/18/2024 1:18 PM EDT 08/18/2024 3:25 PM EDT Tissue specimen (specimen) Prostate / Unknown 08/18/2024 1:18 PM EDT 08/18/2024 3:25 PM EDT Tissue specimen (specimen) Prostate / Unknown 08/18/2024 1:18 PM EDT 08/18/2024 3:25 PM EDT Tissue specimen (specimen) Prostate / Unknown 08/18/2024 1:18 PM EDT 08/18/2024 3:22 PM EDT Tissue specimen (specimen) Prostate / Unknown 08/18/2024 1:18 PM EDT 08/18/2024 3:22 PM EDT Tissue specimen (specimen) Prostate / Unknown 08/18/2024 1:18 PM EDT 08/18/2024 3:22 PM EDT us Miky Almanzar MD LAB PATHOLOGY ORDERABLES Fi nal Result [facility] [address] [place] [address] * TRUS BIOPSY (TRANSRECTAL) (08/18/2024 12:37 PM EDT) Narrative Miky Almanzar MD - 08/18/2024 12:37 PM EDT Miky Almanzar MD 08/18/2024 1:30 PM TRUS Bx (Transrectal) with Nitrous Gas Date/Time: 08/18/2024 12:37 PM Performed by: Chaitanya Barnes MD Authorized by: Surekha Dolan PA Consent: Consent obtained: Verbal and written Consent given by: Patient Risks, benefits, and alternatives were discussed: yes Risks discussed: Bleeding, infection and pain Alternatives discussed: No treatment [place] protocol: Procedure explained and questions answered to patient or proxy's satisfaction: yes Patient identity confirmed: Verbally with patient Sedation: Sedation type: Anxiolysis (Nitrous gas) Anesthesia: Anesthesia method: Local infiltration Local anesthetic: Lidocaine 1% w/o epi Procedure specific details: Procedure: Transrectal ultrasound with biopsy of prostate, US Guidance Indication(s) for the procedure include(s): elevated PSA Pre-procedure(s): antibiotic(s) was given prior to procedure. The procedure's risks and benefits were discussed with the patient. Informed consent was obtained prior to the procedure. We discussed possible complications and risks, including bleeding (urine, bowel, ejaculate), infection, urinary retention, pain and sampling error. Prior to the start of the procedure a time out was taken and the identity of the patient was confirmed via name and date of with the patient. The positioning of the patient was verified. Nitrous gas was given. The availability of the correct equipment was verified. The patient was placed in the left lateral decubitus position. The 7.0 mHz biplanar transrectal ultrasound probe was placed per rectum. Imaging in transverse and longitudinal views revealed the findings below. Prior to biopsy, local anesthesia (1% Xylocaine) was injected into the prostatic capsule. Biopsies were performed with the biopsy device as noted below. Findings: Digital rectal exam: no palpable lesions Prostate Volume: 75 g Seminal Vesicles: normal 12-core biopsy template performed; Biopsies were taken from the base, midline apex, and other areas as indicated bilaterally. The patient tolerated the procedure well. Complications: none. Patient Instructions: Call for temp > 101, inability to urinate, chills, continuous urinary/bowel bleeding and intolerable pain. Will contact with pathology to direct further care. Post-procedure details: Procedure completion: Tolerated well, no immediate complications Surekha KEATING UROLOGY ORDERABLES Final Re sult documented in this encounter Visit Diagnoses Diagnosis BPH with elevated PSA- Primary documented in this encounter Additional Health Concerns Assessment Noted Time PHQ-9 Depression Total Score: 0 08/19/19 25 12:18 PM EDT A fall risk assessment has been complete d for the patient 08/18/2024 12:18 PM EDT A Body Mass Index follow-up plan has been documented for the patient 08/18/2024 1:32 PM EDT documented as of this encounter Care Teams Fence Installer Helper Relationship Specialty Start Date End Date Khang Gustafson MD [address] [facility] [address] [place] [address] PCP - General 07/30/20 Surekha Dolan PA [address] [facility] [address] [place] [address] Physician Die Inspector Urology 06/09/24 documented as of this encounter
--- OUTSIDE RECORDS SUMMARY | 2024-10-09 07:40 | XMS_ITS | Data Portability ---
Author Organization [facility] SERENE Avery PENDROY CLOSED Address [address] [place] [address] Assessment Encounter Date Assessment Date Assessment LastModified by Organization Details LastModified Time 02/13/2022 02/13/2022 f/up yearly tcoxlynch Not available 08:31:13 Plan of Treatment Reminders Order Date Submit Date Provider Last Modified By Organization Details Last Modified Time Details Appointments None recorded . Lab PSA, serum or plasma 018 [facility], [address], [place], [address], 8 12:57:11 urinalys is, dipstick , auto [facility], [address], [address], [place], [address], 8 13:05:52 testoste sanjuanita, free + total, serum 018 [facility], [address] [place] [address], [address], 8 21:05:46 Referral None recorded . Procedures None recorded . Surgeries None recorded . Imaging None recorded . Medication Orders None recorded . Patient TargetsNo targets recorded. Patient Instructions Encounter Date Encounter Id Patient Instructions Last Modified By Organization Details Last Modified Time 05/31/2017 [id number] healthy together [facility] Not availabl e 05/31/2017 13:05:52 learning about high blood pressure [facility] Not available 05/31/2017 13:05:52 Erection Problems: Care Instructions [facility] Not available 05/31/2017 12:57:11 patient discusse d several issues today in the office. 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 I did recommend considering muscle relaxers as this is likely a hyperactive cremaster muscle. I do not think orchiopexy would help the patient. If the patient has significant problems with this orchiectomy is an option. In regards to his BPH the patient does not think his mild symptoms warrant medical therapy and we discussed and gave educational material regarding tamera stanton. In regards to his elevated PSA the PSA today is 13.8 which seems to be stable for the patient. I do recommend PSA at least every 6 months with further workup such as I see or MRI should PSA starts to rise. In regards the patient's erectile dysfunction he is not interested in further therapy today [facility] Not available 05/31/2017 12:58:49 02/13/2022 [id number] Education: We discussed the potential diagnostic options, options for further evaluation and treatments, and the risks and benefits of each. alicia Not available 02/07/2022 13:27:01 Reason for Referral None Reported. Results Created Date Observation Date Name Description Value Unit Range Abnormal Flag Note LastModifiedBy Organization Detail LastModifiedTime 06/01/19 18 05/31/2017 urina lysis , dipst ick, auto Unknown Analyte Yellow Not Available [facility] [address], [place], [address], 05/31/2017 09:31:07 06/01/19 18 05/31/2017 urina lysis , dipst ick, auto Unknown Analyte Clear Not Available [facility] [address], [place], [address], 05/31/2017 09:31:07 06/01/19 18 05/31/2017 urina lysis , dipst ick, auto Unknown Analyte 1.010 Not Available [facility] [address], [place], [address], 05/31/2017 09:31:07 06/01/19 18 05/31/2017 urina lysis , dipst ick, auto Unknown Analyte 5.0 Not Available [facility] [address], [place], [address], 05/31/2017 09:31:07 06/01/19 18 05/31/2017 urina lysis , dipst ick, auto Unknown Analyte Negati ve Not Available [facility] [address], [place], [address], 05/31/2017 09:31:07 06/01/19 18 05/31/2017 urina lysis , dipst ick, auto Unknown Analyte Negati ve Not Available [facility] [address], [place], [address], 05/31/2017 09:31:07 06/01/19 18 05/31/2017 urina lysis , dipst ick, auto Unknown Analyte Negtiv e Not Available [facility] [address], [place], [address], 05/31/2017 09:31:07 06/01/19 18 05/31/2017 urina lysis , dipst ick, auto Unknown Analyte Normal Not Available [facility] [address], [place], [address], 05/31/2017 09:31:07 06/01/19 18 05/31/2017 urina lysis , dipst ick, auto Unknown Analyte Negati ve Not Available [facility] [address], [place], [address], 05/31/2017 09:31:07 06/01/19 18 05/31/2017 urina lysis , dipst ick, auto Unknown Analyte Normal Not Available [facility] [address], [place], [address], 05/31/2017 09:31:07 06/01/19 18 05/31/2017 urina lysis , dipst ick, auto Unknown Analyte Negati ve Not Available [facility] [address], [place], [address], 05/31/2017 09:31:07 06/01/19 18 05/31/2017 urina lysis , dipst ick, auto Unknown Analyte Negati ve Not Available [facility] [address], [place], [address], 05/31/2017 09:31:07 06/01/19 18 05/31/2017 urina lysis , dipst ick, auto Unknown Analyte Clean Catch Not Available [facility] [address], [place], [address], 05/31/2017 09:31:07 06/01/19 18 05/31/2017 urina lysis , dipst ick, auto Unknown Analyte Automa ken Not Available [facility] [address], [place], [address], 05/31/2017 09:31:07 06/01/19 18 05/31/2017 testo stero ne, free + total , serum testosterone , total 316.5 NG/dL 193.0- 740.0 normal Refer ence range is for age 50 years and over. Not Available [facility] [address] [place] [address], [address], 06/03/2017 17:50:18 06/01/19 18 06/03/2017 testo stero ne, free + total , serum testosterone , free 53.3 pg/mL 46.0-2 24.0 normal TEST PERFO RMED AT: [facility] [address] [place] [address] Rosie SOLOMON,PHD Not Available [facility] [address] [place], [address], 06/03/2017 17:50:18 06/01/19 18 05/31/2017 PSA, serum or plasm a PSA 13.8 NG/mL 0.0 - 4.0 Not Available [facility] [address] [place], [place] [id number], [place], [address], 05/31/2017 10:36:54 Result Notes None recorded. Procedures Surgical History Date Name Laterality Status Provider Name and Address Organization Details Recorded Time 02/14/20 22 [facility] 02/13/2022 08:34:00 02/14/20 22 Destruction BN Lesions [facility] 02/13/2022 08:27:33 Appendectomy completed [facility] 05/31/2017 09:28:26 Hernia Repair completed [facility] 05/31/2017 09:28:32 Imaging Results None recorded. Procedure Notes None recorded. Medical Equipment None Reported. Allergies No known drug allergies Medications Name Sig Start Date Stop Date Status Note LastModified by Organization Details LastModified Time losartan 100 mg tablet Take 1 tablet every day by oral route. active Not Available Not Available No t Available Crestor 10 mg tablet Take 1 tablet every day by oral route. active Not Available Not Available No t Available Vitals Date Recorded Body height Body mass index (BMI) Body weight Heart rate Systolic And Diastolic Provider Name and Address Organization Details Last Updated DateTime 05/31/2017 185.42 cm 31 kg/m2 283582.2 1 g 90 /min 125/83 mm[Hg] [facility] 05/31/2017 09:27:09 Social History Question Answer Notes LastModified by Organizat ion Details LastModified Time Tobacco Smoking Status Never Smoker [facility] 05/31/2017 09:28:12 Marital Status Informatio n not available 05/31/2017 What Was The Date Of Your Most Recent Tobacco Screening? 05/31/2017 Information n ot available 05/06/2019 Sex: Unknown Functional Status Question Answer Note LastModified by Organizat ion Details LastModified Time What is your level of alcohol consumption? Occasional Information not available 05/31/2017 Mental Status None recorded. Family History Relationship Description Onset Age of this Age Resolved Age Notes LastModified by Organization Details LastModified Time Unspecified Relation Family history of malignant neoplasm [email or web address] Not available 2017 09:27:47 Unspecified Relation Kidney stone [email or web address] Not available 09:27:55 Medical History Condition Response Kidney Stones Y High PSA Y Past Encounters Encounter ID Performer Location Encounter Start Date Encounter Closed Date Diagnosis/Indication Diagnosis SNOMED-CT Code Diagnosis ICD10 Code Diagnosis Note [id number] ASH CARPENTER JR, MD [facility] [address] [place] [address] 05/31/2017 08:48:37 05/31/2017 14:36:47 Testicular hypofunction 856015226 E29.1 Benign pro static hyperplasia with outflow obstruction 864177847 N40.1 Impotence of organic origin 483759713 N52.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 Multiple a xillary skin tags 692583131 D23.5 bilateral axillae x 5 - removed with gradle scissors and cautery Skin sensa tion disturbance 11629977 R20.9 irritated tags Health Concerns Section Related Observation LastModified by Organization Detai ls LastModified Time None Recorded Concern Status LastModified by Organization Details LastModified Time None Recorded Advance Directives Directive None Recorded Payers Insurance Date Sequence Insurance Name Policy Number Policy Arteaga Covered Member ID Arteaga Member ID Guarantor Name 02/10/2022 1 [place] [id number] Greg Dumont [id number] Greg Dumont Notes Date Note Type Note Provider Name and Address Organization Details Recorded Time 05/31/2017 text/html patient is in today for second opinion in regards to retractile right testis. 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 He reports that every morning the testis is in the inguinal area and he has to push down into the scrotum before discomfortable. He states that when his testis is in the inguinal area his penis is very short. Evidently his penis length is better when he gets his testis into the scrotum. the patient does have a history of elevated PSA and did undergo prostate biopsy 2015. PSA at that time was 15. More recent PSA was 10.22 January 2017. the patient does have mild lower urinary tract symptoms including frequency and urgency with 1-2 times nocturia. He has never had urinary retention. He denies prostate infections. He denies urinary tract infections. He does not think his mild lower urinary tract symptoms warrant medical therapy. Patient also complains today of erectile dysfunction. He states that his erection is not firm even using sildenafil. This is been the case for the last 1-2 years. ASH CARPENTER JR, MD [address] [place] [address], [phone], [facility] 05/31/2017 12:59:42 02/13/2022 text/html ROS as noted in the HPI New Patient - last seen 2011 by [facility] LOCATION: neck and faceDURATION: x monthsSYMPTOMS: roughTREATMENTS: none back - lesion that itches and bleedstags bilateral axillae - clothing rubs irritated no issues with bleeding, scarring, or healing Denies any other new, changing, or bleeding lesions, or other rashes, feels well , good mood and has no family history of melanoma. KIRAN MUÑOZ MD [address] [place] [address], [phone], [facility] 02/13/2022 09:17:16
--- OUTSIDE RECORDS SUMMARY | 2024-10-09 07:40 | XMS_ITS | Encounter Summary ---
Author Organization Healthcare Address [address] [place] [address] Care Team Providers Care Confidential Investigator Name Role Phone Khang Gustafson MD Primary Care Provider + [phone] Surekha Dolan Unavailable [phone] Reason for Visit * Reason Comments Med Refill Encounter Details Date Type Department Care Team (Late st Contact Info) Description 08/07/2023 Refill [facility] [address], [address] [place] [address] Surekha Dolan PA [address] [place] [address] Social History Tobacco Use Types [...] Description 11/24/2024 8:00 AM EDT Clinical Support [facility] [address], [address] [place] [address] 06/09/2025 8:50 AM EDT Office Visit [facility] [address], [address] [place] [address] Surekha Dolan PA [address] [place] [address] documented as of this encounter Visit Diagnoses Not on filedocumented in this encounter Additional Health Concerns Assessment Noted Time A fall risk assessment has been complete d for the patient 07/24/2022 8:15 AM EDT A Body Mass Index follow-up plan has been documented for the patient 08/31/2022 8:14 AM EDT documented as of this encounter Care Teams Confidential Investigator Relationship Specialty Start Date End Date Khang Gustafson MD [address] [facility] [address] [place] [address] PCP - General 07/30/20 Surekha Dolan PA [address] [place] [address] Physician Seater Grinder Urology 06/09/24 documented as of this encounter
--- OUTSIDE RECORDS SUMMARY | 2024-10-09 07:40 | XMS_ITS | Referral Summary ---
Author Organization [employer] ([place], [place], [place], [place]) Address [address] [place] [address] Care Team Providers Care Chicken Dresser Name Role Phone Unavailable Primary Care Provider [...] Date Raul rded Speak language other than Afghan at home Not on file 04/06/2023 Want [...]
--- OUTSIDE RECORDS SUMMARY | 2024-10-09 07:40 | XMS_ITS | Clinical Summary ---
Author Organization [facility] Address [address] [place] [address] Care Team Providers Care Senior Controls Engineer Name Role Phone Khang Gustafson MD Primary Care Provider + [phone] Surekha Dolan Unavailable [phone] Allergies Active Allergy Reactions Criticality Noted Date [...] Patient not taking.Reported on 08/18/2024 HYDROcodone-danitza taminophen ([place]) 7.5-325 MG tablet if needed. 3 Active [...] Department Care Team Description 08/21/2024 Results Follow-Up [facility] [address] [place] [phone] Miky Almanzar MD 08/18/2024 12:30 PM EDT Office Visit [facility] [address] [place] [address], [address] [place] [address] Miky Almanzar MD BPH with elevated PSA (Primary Dx) 08/18/2024 Travel 07/28/2024 Orders Only [facility] [address] [place] [address] Surekha Dolan PA BPH with elevated PSA (Primary Dx) 07/16/2024 Telephone [facility] [address] [place] [address] Surekha Dolan PA HCN Clinical Concern/Question; HCN Status Update Call #1; HCN Status Update Call #2 from Last 3 Months Family History Medical [...] Description 11/24/2024 8:00 AM EDT Clinical Support [facility] [address] [place] [address] 06/09/2025 8:50 AM EDT Office Visit [facility] [address], [address] [place] [address] Surekha Dolan PA [address] [place] [address] Health Maintenance Due Date Last Done Comments [facility]-HIV Screening 1961 [facility]-Hepatitis C Screening 1961 [facility]-/Child/Adol SDOH Screenings 1961 [facility]- SDOH Screenings 10/24/1979 [facility]-Adult SDOH Screenings 10/24/1979 [facility]-DTaP,Tdap,and Td Vaccines (1 - Tdap) 12/22/2004 12/21/2004 CT Colonography 2006 Colonoscopy 2006 FIT-DNA 2006 FIT 2006 FOBT 2006 Sigmoidoscopy 2006 [facility]-Colorectal Cancer Screening 2006 [facility]-Pneumococcal Vaccine: 50+ Years (1 of 1 - PCV) 10/24/2011 [facility]-Zoster Vaccines (1 of 2) 10/24/2011 [id number]-[id number]-90 Vaccine (4 - season) 2023 01/21/2021, 04/27/2020, 03/26/2020 [facility]-Influenza [...] this topic Medical Devices Implanted Type Area Clinical Nursing Instructor Device Identifier Shelf Expiration Date Model / Serial / Lot Stent Ureteral Double Pigtail Pos 5fr 26cm - [id number] Implanted:Qty: 1 on 08/28/2022 by Richardson Erwin MD at [facility] [id number] 02/06/2024 [id number] / / [id number] Procedures Procedure Name Priority Date/Time Associated Diagnosis Comments SURGICAL PATHOLOGY EXAM Routine 08/18/2024 1:18 PM EDT BPH with elevated PSA TRUS BIOPSY (TRANSRECTAL) Routine 08/18/2024 12:37 PM EDT BPH with elevated PSA from Last 3 Months Results * Surgical Pathology Exam (08/18/2024 1:18 PM EDT) Case Report Surgical Pathology Case: [id number] Authorizing Provider: Miky Almanzar MD Collected: 08/18/2024 1318 Ordering Location: Medical Office Building Received: 08/18/2024 1525 Urology Pathologist: Mercedez Kilgore MD Specimens: A) - Prostate, 1 left base B) - Prostate, 2 right base C) - Prostate, 3 left mid D) - Prostate, 4 right mid E) - Prostate, 5 left apex F) - Prostate, 6 right apex 08/21/2024 11:11 AM EDT [facility] Final Diagnosis A. PROSTATE, LEFT BASE, BIOPSY: - BENIGN PROSTATE TISSUE. B. PROSTATE, RIGHT BASE, BIOPSY: - BENIGN PROSTATE TISSUE. C. PROSTATE, LEFT MID, BIOPSY: - BENIGN PROSTATE TISSUE. D. PROSTATE, RIGHT MID, BIOPSY: - BENIGN PROSTATE TISSUE. E. PROSTATE, LEFT APEX, BIOPSY: - BENIGN PROSTATE TISSUE. F. PROSTATE, RIGHT APEX, BIOPSY: - BENIGN PROSTATE TISSUE. 08/21/2024 11:11 AM EDT [facility] at 1111 EDT Clinical Information elelvated psa N40.0, R97.20 - BPH with elevated PSA [ICD-10-CM] 08/21/2024 11:11 AM EDT [facility] Gross Description A. 1 LEFT BASE [...] Nithya B Pettey 08/21/2024 11:11 AM EDT [facility] Tissue Prostate / Unknown Non-blood Collection [...] MD LAB PATHOLOGY ORDERABLES Fi nal Result [facility] [address] [place] [address] * TRUS BIOPSY (TRANSRECTAL) (08/18/2024 12:37 PM [...] infection and pain Alternatives discussed: No treatment [place] protocol: Procedure explained and questions answered to [...] Re sult from Last 3 Months Insurance [facility] Care Teams Senior Controls Engineer Relationship Specialty Start Date End Date Khang Gustafson MD [address] [facility] [address] [place] [address] PCP - General 07/30/20 Surekha Dolan PA [address] [facility] [address] [place] [address] Physician Facing Grinder Urology 06/09/24
--- OUTSIDE RECORDS SUMMARY | 2024-10-09 07:40 | XMS_ITS | Encounter Summary ---
Author Organization Healthcare Address [address] [place] [address] Care Team Providers Care Production Sanitizer Name Role Phone Khang Gustafson MD Primary Care Provider + [phone] Surekha Dolan Unavailable [phone] Reason for Visit * Reason Comments Med Refill Encounter Details Date Type Department Care Team (Late st Contact Info) Description 12/26/2022 Refill [facility] [address], [address] [place] [address] Surekha Dolan PA [address] [place] [address] Social History Tobacco Use Types [...] Description 11/24/2024 8:00 AM EDT Clinical Support [facility] [address], [address] [place] [address] 06/09/2025 8:50 AM EDT Office Visit [facility]rology [address], [address] [place] [address] Surekha Dolan PA [address] [address] documented as of this encounter Visit Diagnoses Not on filedocumented in this encounter Additional Health Concerns Assessment Noted Time A fall risk assessment has been complete d for the patient 07/24/2022 8:15 AM EDT A Body Mass Index follow-up plan has been documented for the patient 08/31/2022 8:14 AM EDT documented as of this encounter Care Teams Production Sanitizer Relationship Specialty Start Date End Date Khang Gustafson MD [address] [address] PCP - General 07/30/20 Surekha Dolan PA [address] [place] [address] Physician Dental Chairside Assistant Urology 06/09/24 documented as of this encounter
--- OUTSIDE RECORDS SUMMARY | 2024-10-09 07:40 | XMS_ITS | Encounter Summary ---
Author Organization Healthcare Address [address] [place] [address] Care Team Providers Care Product Accountant Name Role Phone Khang Gustafson MD Primary Care Provider + [phone] Surekha Dolan Unavailable [phone] Encounter Details Date Type Department Care Team (Late st Contact Info) Description 07/24/2022 Abstract [facility] Audiology [address] [place] [address] Susi Marsh, MS [address] [place] [address] Social History Tobacco Use Types [...] Description 11/24/2024 8:00 AM EDT Clinical Support [facility] [address], [address] [place] [address] 06/09/2025 8:50 AM EDT Office Visit [facility]rology [address] [place] [address] Surekha Dolan PA [address] [address] documented as of this encounter Visit Diagnoses Not on filedocumented in this encounter Additional Health Concerns Assessment Noted Time A fall risk assessment has been complete d for the patient 07/24/2022 8:15 AM EDT A Body Mass Index follow-up plan has been documented for the patient 07/24/2022 8:56 AM EDT documented as of this encounter Care Teams Product Accountant Relationship Specialty Start Date End Date Kahng Gustafson MD [facility] [address] [address] PCP - General 07/30/20 Surekha Dolan PA [address] [place] [address] Physician Communications Assistant Urology 06/09/24 documented as of this encounter
--- OUTSIDE RECORDS SUMMARY | 2024-10-09 07:40 | XMS_ITS | Clinical Summary ---
Author Organization [facility] Address [address] [place] [address] Care Team Providers Care Auto Radiator Specialist Name Role Phone Khang Gustafson MD Primary Care Provider + [phone] Allergies No known active allergies Medications valsartan (DIOVAN) 320 MG tablet Take 1 tablet by mouth Daily. Active rosuvastatin (CRESTOR) 20 MG tablet Take 1 tablet by mouth Daily. Active vitamin B-12 (CYANOCOBALAMIN ) 1000 MCG tablet Take 1 tablet by mouth Daily. Active omeprazole (priLOSEC) 20 MG capsule Take 1 capsule by mouth As Needed. Active nitroglycerin (NITROSTAT) 0.4 MG SL tabletIndicatio ns:Precordial chest pain 1 under the tongue as needed for angina, may repeat q5mins for up three doses 100 tablet 11 11/03/2020 Active finasteride (PROSCAR) 5 MG tablet Take 1 tablet by mouth Daily. 04/26/2021 Active amLODIPine (NORVASC) 5 MG tablet Take 1 tablet by mouth As Needed. Active HYDROcodone-danitza taminophen (NORCO) 7.5-325 MG per tablet Take 1 tablet by mouth As Needed. 05/15/2022 Active tadalafil (CIALIS) 5 MG tablet Take 1 tablet by mouth Daily As Needed. 06/05/2022 Active tamsulosin (FLOMAX) 0.4 MG capsule 24 hr capsule Take 1 capsule by mouth Daily. 05/25/2022 Active Active Problems Problem Noted Date Diagnosed Date Essential hypertension 11/03/2020 Mixed hyperlipidemia 11/03/2020 Heartburn 11/03/2020 Resolved Problems Problem Noted Date Diagnosed Date Resolved Date Precordial chest pain 11/03/20202020 Immunizations Immunization Administration Dates Next Due COVID-19 (MODERNA) 1st,2nd,3 rd Dose Monovalent 01/21/2021,04/27/2020,03/26/2020 TD Preservative Free (Tenivac) 12/21/2004 Family History Medical History Relation Name Comments Cancer Brother 1 Diabetes Brother 2 Hypertension Brother 2 No Known Problems Father Cancer Maternal Grandfather Alzheimer's disease Maternal Grandmother Kidney failure Mother No Known Problems Paternal Grandfather No Known Problems Paternal Grandmother Relation Name Status Comments Brother 1 Alive Brother 2 Alive Father (Age 89) Maternal Grandfather Maternal Grandmother Mother Paternal Grandfather Paternal Grandmother Social History Tobacco Use Types Packs/Day Years Used Date Smoking Tobacco: Never Smokeless Tobacco: Never Alcohol Use Standard Drinks/Week Comments Yes 0 (1 standard drink = 0.6 oz pur e alcohol) occ Abuse Screen Answer Date Recorded Unsafe at Home or Work/School Not on file Feels Threatened by Someone? Not on file Does Anyone Keep You from Co ntacting Others or Doint Things Outside the Home? Not on file 12/29/2022 Physical Sign of Abuse Present Not on file 1 Housing Stability Answer Date Recorded Current Living Arrangements Not on file 12/17 Potentially Unsafe Housing Conditions Not on eron e 12/29/2022 Family and Community Support Answer Lemuel e Recorded Help with Day-to-Day Activities Not on file 12/29/2022 Lonely or Isolated Not on file 12/29/2022 Employment Answer Date Recorded Do you want help finding or keeping work or a trenton b? Not on file 12/29/2022 Disabilities Answer Date Recorded Concentrating, Remembering, or Making Decisions Difficulty Not on file 12/29/2022 Doing Errands Independently Difficulty Not on fi le 12/29/2022 Education Answer Date Recorded Help with school or training? Not on file Preferred Language Not on file 12/29/2022 Sex and Gender Information Value Date Recorded Sex Assigned at Not on file Legal Sex Male 4:38 PM EDT Gender Identity Not on file Sexual Orientation Not on file Last Filed Vital Signs Vital Sign Reading Time Taken Comments Blood Pressure 122/74 06/14/2022 9:24 AM EDT Pulse 84 06/14/2022 9:24 AM EDT Temperature 36.7 C (98.1 F) 10/05/2020 9:04 AM EDT Respiratory Rate 17 10/05/2020 9:04 AM EDT Oxygen Saturation 97% 06/14/2022 9:24 AM EDT Inhaled Oxygen Concentration - - Weight 109 kg (240 lb 9.6 oz) 06/14/2022 9:24 AM EDT Height 185.4 cm (6' 1 ) 06/14/2022 9:24 AM EDT Body Mass Index 31.74 06/14/2022 9:24 AM EDT Plan of Treatment Health Maintenance Due Date Last Done Comments LIPID PANEL 1961 COLOGUARD 2006 COLON CANCER SCREENING 5 YEA R SIGMOIDOSCOPY 2006 COLONOSCOPY 2006 COL[address]AL CANCER SCREENING 2006 CT COLONOGRAPHY 2006 FECAL OCCULT BLOOD TEST 2006 FIT Testing (1 year) 2006 Pneumococcal Vaccine 50+ (1 of 1 - PCV) 10/24/2011 ZOSTER VACCINE (1 of 2) 10/24/2011 TDAP/TD VACCINES (2 - Tdap) 12/21/2014 12/21/2004 ANNUAL PHYSICAL 10/05/2020 HEPATITIS C SCREENING 10/05/2020 COVID-19 Vaccine ( season) 2023 01/21/2021, 04/27/2020, 03/26/2020 INFLUENZA VACCINE 12/17/2024 Insurance [facility] PPO Care Teams Auto Radiator Specialist Relationship Specialty Start Date End Date Khang Gustafson MD [address] [facility] [address] [facility] [address] [place] [address] PCP - General Family Medicine 10/05/20
--- OUTSIDE RECORDS SUMMARY | 2024-10-09 07:40 | XMS_ITS | Encounter Summary ---
Author Organization Healthcare Address [address] [place] [address] Care Team Providers Care Sciences Dean Name Role Phone Khang Gustafson MD Primary Care Provider + [phone] Surekha Dolan Unavailable [phone] Encounter Details Date Type Department Care Team [...] -9 Score 0 08/18/2024 12:18 PM EDT Russ Guzman * If you checked off any [...] Description 11/24/2024 8:00 AM EDT Clinical Support [facility] [address] [place] [address] 06/09/2025 8:50 AM EDT Office Visit [facility] Urology [address] [place] [address] Surekha Dolan PA [address] [address] documented as of this encounter [...] documented as of this encounter Care Teams Sciences Dean Relationship Specialty Start Date End Date Khang Gustafson MD [address] [facility] [address] [place] [address] PCP - General 07/30/20 Surekha Dolan PA [address] [phone] Physician Thermostat Maker Urology 06/09/24 documented as of this encounter
--- OUTSIDE RECORDS SUMMARY | 2024-10-09 07:40 | XMS_ITS | Encounter Summary ---
Author Organization Healthcare Address [address] [place] [address] Care Team Providers Care Senior Editor Name Role Phone Khang Gustafson MD Primary Care Provider + [phone] Surekha Dolan Unavailable [phone] Encounter Details Date Type Department Care Team (Late st Contact Info) Description 08/21/2024 Results Follow-Up [facility] Urology [address] [place] [address] Miky Almanzar MD [address] [place] [address] Social History Tobacco Use Types [...] started him on Flomax Surgical Pathology Exam: [id number] Order: [id number] Status: Final result Dx: BPH with elevated PSA Test Result Released: Yes (seen) Component Case Report Surgical Pathology Case: [id number] Authorizing Provider: Miky Almanzar MD Collected: 08/18/2024 1318 Ordering Location: Medical Office Building Received: 08/18/2024 [facility] Pathologist: Mercedez Kilgore MD Specimens: A) [...] Description 11/24/2024 8:00 AM EDT Clinical Support [facility] [address], [address] [place] [phone] 06/09/2025 8:50 AM EDT Office Visit [facility] Urology [address], [address] [place] [phone] Surekha Dolan PA [address] [employer] [facility] [place] [address] documented as of this encounter Visit Diagnoses [...] documented as of this encounter Care Teams Senior Editor Relationship Specialty Start Date End Date Khang Gustafson MD [address] [place] [address] PCP - General 07/30/20 Surekha Dolan PA [address] [phone] Physician Bottle House Cleaners Supervisor Urology 06/09/24 documented as of this encounter
--- OUTSIDE RECORDS SUMMARY | 2024-10-09 07:40 | XMS_ITS | Encounter Summary ---
Author Organization Healthcare Address [address] [place] [address] Care Team Providers Care Vaccine Specialist Name Role Phone Khang Gustafson MD Primary Care Provider + [phone] Surekha Dolan Unavailable [phone] Reason for Visit * Reason Onset Date Comments HCN Clinical Concern/Question 07/16/2024 HCN Status Update Call #1 07/16/2024 HCN Status Update Call #2 07/16/2024 Encounter Details Date Type Department Care Team (Late st Contact Info) Description 07/16/2024 Telephone [facility] [address] [place] [address] Surekha Dolan PA [address] [place] [address] HCN Clinical Concern/Question; HCN Status [...] of the initial request. Best contact number: [phone] (home) Optimal time of day to reach [...] will receive notification of the communication/outcome via [employer] * Telephone Encounter - Surekha Dolan PA [...] of the initial request. Best contact number: [phone] (mobile) Optimal time of day to reach [...] call try both numbers Best contact number: [phone] (mobile) Optimal time of day to reach [...] [facility] [address] [place] [address] 06/09/2025 8:50 AM EDT Office Visit [facility] Urology [address] [place] [address] Surekha Dolan PA [address] [place] [address] documented as of this encounter Visit Diagnoses [...] documented as of this encounter Care Teams Vaccine Specialist Relationship Specialty Start Date End Date Khang Gustafson MD [id number] [place] [address] PCP - General 07/30/20 Surekha Dolan PA [id number] [place] [address] Physician Pr Specialist Urology 06/09/24 documented as of this encounter
--- OUTSIDE RECORDS SUMMARY | 2024-10-09 07:40 | XMS_ITS | Clinical Summary ---
Author Organization [employer] ([place], [place], [place], [place]) Address [address] [place] [address] Care Team Providers Care Car Rental Manager Name Role Phone Unavailable Primary Care Provider [...] Date Raul rded Speak language other than Fijian at home Not on file 04/06/2023 Want [...]
--- NOTE | 2024-10-09 08:00 | CT_ITS ---
FINAL REPORT TECHNIQUE: Oral and IV contrast enhanced exam This study was performed with techniques to keep radiation doses as low as reasonably achievable, (ALARA). Individualized dose reduction techniques using automated exposure control or adjustment of mA and/or kV according to the patient''s size were employed. CLINICAL HISTORY: Lower abdominal pain COMPARISON: 09/07/2022 FINDINGS: Abdomen: No acute density is seen within the lung bases. The gallbladder is unremarkable. There is fatty infiltration of the liver. There is a small cyst of the anterior left mid kidney. The remaining solid abdominal organs are unremarkable. No bowel obstruction is present. There is no free air. No fluid collection is seen. There is no adenopathy. Pelvis: There are postoperative changes along the cecum from presumed appendectomy. The prostate is moderately enlarged. No bowel wall thickening is present. There is no free fluid. No pelvic mass is seen. IMPRESSION: No acute findings or abnormality to account for patient's symptoms. Reviewed, Interpreted and Dictated by Brody Barrett MD Transcribed by Yi Wang Authenticated and [facility]
[2024-10-09] MEDS: SODIUM CHLORIDE 0.9% 10ML SYR (RAD ONLY) 10 ML IV (08:04)
[2024-10-09] MEDS: IOPAMIDOL-370 (76%);100ML BOTTLE 75 ML IV (08:04)
[2024-10-09] MEDS: BARIUM SULFATE(READI-CAT2);450ML BOTTLE 450 ML PO (08:04)
== END 2024-10-09 23:59 | disposition home or self-care (01) ==
LOC: RAD 07:37
PROVIDERS: PCP Family Medicine; Visit Provider Surgery
DX: R10.30 Lower abdominal pain, unspecified (principal)
CPT/HCPCS: 74177; Q9967